=== PATIENT | male | born 1945 | race Caucasian/White ===

== ENCOUNTER 2016-09-16 08:31 | Inpatient (IN) | payer MEDICARE, OTHER ==
[2016-09-16] VITALS (7 sets, daily range): BP systolic 103–114; BP diastolic 60–80; PULSE 85–101; RESP 18–22; O2SAT 95–97
[~2016-09-16 08:31] MED LIST: ALBU2.5V4 INHALATION; ALBU8.5H2 INHALATION; ASPI-973 PO; Acetaminophen PO; Alum-Mag Hydrox-Simeth 30 mL Suspension PO PRN; CLOP75TA28 PO; FLUT1DIS5 INHALATION; FURO40TA4 PO; GLBR5T PO; INSU1KIT MC; INSU200I SQ; LISI-571 PO; LISI10TA PO; LORA1TAB PO; METO25TA6 PO; MONT10TA20 PO; MULT1CAP33 PO; PHEN15SP NS; PRED-508 PO; Polyethylene Glycol (PEG) 17 Gm Powder PO PRN; SPIR25TA PO; TIOT18CA3 INHALATION; TRIA0.1220 PO
[2016-09-16] MEDS ORDERED: LISI-571 PO (09:55)
[2016-09-16] MEDS ORDERED: DIGO125T73 PO (09:55)
[2016-09-16] MEDS ORDERED: CLOP75TA28 PO (09:55)
[2016-09-16] MEDS ORDERED: METO25TA99 PO (09:55)
[2016-09-16] MEDS ORDERED: PRE10 PO (09:55)
[2016-09-16] MEDS ORDERED: _Albuterol 2.5 mg/3 mL Neb NEB PRN (14:25)
[2016-09-16] MEDS: Albuterol 2.5 mg/3 mL Inhalation Solution NEB PRN ×2 (16:51→22:31)
--- NOTE | 2016-09-16 18:36 | NUR ---
Direct Admit for Tikosyn administration pt. came to 2002 for direct admit this am at 0750. Pt. tele sinus tach 90-low 100's. Denied cp, pressure, or palpitations. Tikosyn administered at 1100 this am; EKG 2 hr post; Francisco DENTON reviewed EKG's. Pt. up in room and hallway ambulating IND; steady on feet; denied dizziness or sob. Admit and med Rec completed by Toni delarosa RN.
[2016-09-16] MEDS: Fluticasone-Salmeterol 500-50 Inhaler INHALATION SCH (22:13)
[2016-09-16] MEDS: LORazepam 0.5 mg Tablet PO PRN (22:23)
[2016-09-17] VITALS (10 sets, daily range): BP systolic 94–113; BP diastolic 64–74; PULSE 69–87; RESP 16–24; O2SAT 95–98
--- NOTE | 2016-09-17 01:06 | HP ---
[address] [address] HISTORY AND PHYSICAL PATIENT: HARRIET BROCK : 1945 MR#: [id number] ADMIT: 09/16/2016 JOB ID: [id number] REASON FOR ADMISSION: To start new medical therapy with Tikosyn for treatment of malignant ventricular arrhythmias. CHIEF COMPLAINT: Episodic rapid pulse, syncope and cardiac arrest. 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 He earlier received a defibrillator for prevention of sudden cardiac and the device has over time recorded quite a few episodes of rapid tachycardia that are both narrow QRS, SVT and wide QRS VT. He also had one episode of ventricular fibrillation cardiac arrest about two months ago and the device successfully rescued him on the first shock. He was at home with his at the time and they were in the kitchen making breakfast. He suddenly lost consciousness and fell to the floor, but then revived. The patient also has a history of atrial flutter and has been cardioverted. PAST MEDICAL HISTORY: Aside from the cardiomyopathy, he has diabetes, dyslipidemia, sleep apnea, heart failure symptoms, recent bilateral lower leg cellulitis, COPD and hyperlipidemia. FAMILY HISTORY: The patient is currently adopted, although he knows of his mother and she in her 70s of heart failure. He has one daughter alive and well. SOCIAL HISTORY: He is retired, but is active with martial arts, and he is . He is a former smoker of cigarettes, and quit about two years ago. REVIEW OF SYSTEMS: This review is positive for dizziness, for cardiac symptoms of palpitations, and history of heart attack. Positive for heart failure symptoms of edema and exertional dyspnea and fatigue. He has history of hypertension and does experience dyspnea. Musculoskeletal systems review is positive for arthritis. The other points of the 14 point review of systems are negative. PHYSICAL EXAMINATION: Vital signs: BP 103/69, pulse 90 and regular, he is afebrile, and oximetry is 97% on room air. The patient is alert and well oriented to time, place and reason for being here. He is a middle-aged man in no distress. Head: Normocephalic. Eyes: Pupils and eye movements appear normal. Neck: Supple. No thyromegaly. Carotid pulses are weak, but there are no bruits. There is no JVD. Chest exam: Breath sounds are full in all royal. There are dry expiatory wheezes heard throughout. Cardiac exam: Regular rhythm. No gallops or murmurs heard. Abdomen: Soft and nontender and with bowel sounds. Lower leg edema is present bilaterally and he is healing from cellulitis which started a few weeks ago after walking in ocean water in [place]. IMPRESSIONS AND PLAN Mr. Brock has both rapid VT and SVT and a recent VF event from which he was rescued by his ICD. He also has a history of atrial flutter and COPD. With his ischemic cardiomyopathy, antiarrhythmic therapy with flecainide or propafenone is not acceptable. With his COPD, amiodarone and sotalol are not acceptable. This leaves Tikosyn (dofetilide) which requires initiation in the hospital to watch for prolonged QT intervals and possible aggravation of ventricular arrhythmias. After baseline ECG and lab work, he'll be given dofetilide 500 mcg capsules q. 12 hrs and have his 12 lead ECG recorded at 2-3 hrs after each dose to measure the QT. If this stays within 15% of baseline, then he'll continue.if it prolongs > 15%, then the dose will be reduced or discontinued Dr. Santos Bernard personally interviewed and physically examined Mr Brock as well. We discussed the patient's presentation and agreed on the plan of care together. JENIFER
--- NOTE | 2016-09-17 05:23 | NUR ---
Cardiac Pt here for Tikosyn administration. 220 does of Tikosyn given and EKG performed 2hrs after. Qtc 493 and within parameters. VSS and Tele SR 90's IVCD
[2016-09-17] MEDS ORDERED: predniSONE 10 mg Tablet PO SCH (08:00)
[2016-09-17] MEDS: Tiotropium 18mcg/Cap 5 Capsule Inhaler Kit INHALATION SCH (08:37)
[2016-09-17] MEDS: Fluticasone-Salmeterol 500-50 Inhaler INHALATION SCH ×2 (08:38→21:26)
[2016-09-17] MEDS: MeTOProlol XL 25 mg ER24 Tablet PO SCH (08:40)
[2016-09-17] MEDS: Albuterol 2.5 mg/3 mL Inhalation Solution NEB PRN ×2 (08:46→21:07)
--- NOTE | 2016-09-17 14:02 | PROG NOTE ---
[address] [address] PROGRESS NOTE PATIENT: HARRIET KOHLI : 1945 MR#: [id number] ADMIT: 09/16/2016 JOB ID: [id number] DATE: 09/17/2016 CHIEF COMPLAINT: "I did not sleep last night." SUBJECTIVE: The patient is a pleasant 71-year-old man who was admitted to the hospital yesterday to start antiarrhythmic therapy with Tikosyn for treatment of malignant ventricular arrhythmias and supraventricular tachycardia. He has received three doses of Tikosyn (dofetilide) at this time and is not aware of any side effects. He did not sleep well last night and that was mostly due to the noisy air mattress bed. He denies chest pain, lightheadedness, dizziness, shortness of breath, or GI upset today. OBJECTIVE: His serum chemistry from yesterday morning showed potassium 5.2, creatinine 1.12, magnesium 2.0 and BUN 34. His liver enzymes are slightly elevated with AST 69 and ALT 70. Baseline ECG showed sinus rhythm with a wide QRS of 127 msec and a QT of 374 with a QTc of 475. Two hours after his third dose of Tikosyn the QT was 429 and the QTc was 492 which is within the 15% increase allowable. His physical exam was reviewed, and there are no significant changes from yesterday. ASSESSMENT: The patient is tolerating dofetilide 500 mcg q.12 h. well. The QT interval on the ECG is not prolonging abnormally, and he is not having malignant arrhythmias. Telemetry monitoring does show occasional bouts of short nonsustained ventricular tachycardia with rates that are not concernedly fast. The arrhythmias are monomorphic and polymorphic, although he has different morphologies which present during any one run of nonsustained ventricular tachycardia. PLAN: For now, continue dofetilide at 500 mcg q.12 h. with ECGs recorded 2-3 hours after each dose. We will anticipate discharging him home tomorrow at about noon after the fifth dose of Tikosyn. Dr. Santos Bernard personally interviewed and examined the patient again today.
[2016-09-17] MEDS: LORazepam 0.5 mg Tablet PO PRN ×2 (14:22→21:23)
--- NOTE | 2016-09-17 19:32 | NUR ---
V-tach/Anxiety/Blood sugar Pt had 4 beats of V-tach this am, PA notified, Pt asymptomatic, no additional intervention at this time. Pt reported some mild anxiety this afternoon, given PRN lorazepam, Pt reported as effective. Pt's blood sugar 172 prior to glyburide dose this am, 227 prior to lunch, and 228 prior to dinner/evening glyburide dose, Pt asymptomatic with hyperglycemia, PA paged, instructed by PA to continue to monitor at this time, oncoming NOC RN made aware.
[2016-09-18 03:06] VITALS: BP 95/66; PULSE 78; RESP 22; O2SAT 97
--- NOTE | 2016-09-18 04:56 | NUR ---
Tikosyn/Vtach Pt EKG performed 2 hours after administration of Tikosyn showing QTc of 510 and still within normal limits for this pt. Pt had 6 Beats of Vtach x2 this shift and asymptomatic. VSS and Tele SR 80's.
[2016-09-18] MEDS ORDERED: predniSONE 10 mg Tablet PO SCH (08:00)
[2016-09-18 08:49] VITALS: BP 98/68; PULSE 89; RESP 20; O2SAT 98
[2016-09-18] MEDS: MeTOProlol XL 25 mg ER24 Tablet PO SCH (09:23)
[2016-09-18 09:38] VITALS: PULSE 83; RESP 16; O2SAT 97
[2016-09-18] MEDS: Albuterol 2.5 mg/3 mL Inhalation Solution NEB PRN (09:38)
[2016-09-18] MEDS: Fluticasone-Salmeterol 500-50 Inhaler INHALATION SCH (10:17)
[2016-09-18] MEDS: Tiotropium 18mcg/Cap 5 Capsule Inhaler Kit INHALATION SCH (10:18)
[2016-09-18 11:12] VITALS: PULSE 80
[2016-09-18] MEDS: LORazepam 0.5 mg Tablet PO PRN (13:05)
--- NOTE | 2016-09-18 13:18 | PCM.DIMED ---
Discharge Instructions Date of Service Sep 18, 2016 Dates of Hospitalization Sep 16, 2016 at 08:31 Discharge Diagnosis Discharge Diagnosis Recent VF - defibrillated by ICD Ventricular Tachycardia SVT Cardiomyopathy Atrial Flutter Diet Low fat, Low Sodium, Heart Healthy Activity No restrictions Call your provider Other (Fainting or near fainting) Patient Instructions Provider: Santos Bernard MD Follow-up in: 1 week (Sep 23, 2016 in [place]. ) Mid-level Provider (F9): Francisco Harris PA-C Follow-up with Mid-level in: 4 weeks (Device Clinic in [place] on 10-11-16 at 1:30) Francisco Harris PA-C Sep 18, 2016 13:18
[2016-09-18] MEDS ORDERED: [UNRECOGNIZED DRUG - CODE] PO (13:29)
--- NOTE | 2016-09-18 13:53 | NUR ---
Social Work Note: Initial Assessment/Discharge Data& Assessment: EMR reviewed. Per pt is medically improved and ready for discharge. Darrick Brock is a 71 year old male admitted on 08/29/2016 for initiation Tikasyn therapy. Per pt is medically improved and ready to discharge home with via POV. SW met with pt and pt at bedside to confirm discharge plan and assess for any unmet needs. Pt has Medicare and [facility] [employer] [facility] Plan Supplement. Pt sees Westley Huerta MD for primary care. Pt lives in [place] with his and is independent at baseline. Pt drives and does not use any DME. Pt does not have HH or SNF hx. Pt does not have LTC insurance or VA benefits. Pt has DPOA paperwork completed, SW requested a copy when possible for his chart. Pt transporting pt home today. Pt and pt deny any other needs. No other discharge needs identified. Plan: Per pt is medically improved and ready to discharge home with via POV. Pt transporting pt home today. Pt and pt deny any other needs. No other discharge needs identified. All updated and agreeable to plan. MARTHA Gorman Addendum: 09/18/16 at 1357 by SHAWN HERRING Amended: Links added.
--- NOTE | 2016-09-18 14:11 | DIS ---
[address] [address] DISCHARGE SUMMARY PATIENT: HARRIET KOHLI : 1945 MR#: [id number] ADMIT: 09/16/2016 JOB ID: [id number] DIS: 09/18/2016 REASON FOR ADMISSION: New medical therapy with Tikosyn for ventricular and supraventricular arrhythmias. CHIEF COMPLAINT: Syncope and near syncope from rapid heart beats. BRIEF HISTORY: The patient is a pleasant 71-year-old man who likely has tachycardia induced cardiomyopathy due to supraventricular arrhythmias and atrial flutter. He also has developed both sustained and nonsustained ventricular tachycardia and even had one episode of ventricular fibrillation over the past two months. He was resuscitated from this by his implanted defibrillator. He required antiarrhythmic therapy because of his problems and due to his conditions, dofetilide (Tikosyn) was the drug of choice. COURSE IN HOSPITAL: The patient was admitted to the [facility] and after baseline lab work and ECGs were obtained, he was started on Tikosyn 500 mcg q.12 hours. He had EKGs recorded two hours after each dose and the QT interval prolonged but remained within the 15% increase from baseline. Telemetry recording showed several brief episodes of nonsustained ventricular tachycardia that were not rapid and were not polymorphic. He had no side effects from the medication and felt well for discharge home. DISPOSITION: The patient was discharged home in good condition with a follow up appointment at the [facility] Cardiology office in [place] next week with Dr. Bernard and then on October 18 at the device clinic in [place], with Francisco Harris PA-C. He was advised to take Tikosyn q.12 hours and not vary more than 1 hour in the dosing schedule and also to not try to make up any doses but just continue with the next scheduled dose if he missed one by more than one hour. He will continue a heart healthy and low sodium diet and he has no activity restrictions. DISCHARGE MEDICATIONS: 1. Dofetilide 500 mcg capsules q.12 hours. 2. Albuterol HFA inhaler, two puffs q.4 hours p.r.n. shortness of breath. 3. Albuterol nebulizer 2.5 mg inhalations q.4 hours p.r.n. 4. Aspirin 81 mg daily. 5. Clopidogrel 75 mg daily. 6. Advair 500-50 Diskus 1 puff b.i.d. 7. Furosemide 40 mg daily. 8. Glyburide 5 mg b.i.d. or 10 mg b.i.d. when on prednisone. 9. Lisinopril 10 mg in the a.m. 10. Lisinopril 5 mg q.h.s. 11. Lorazepam 0.5-1.0 mg p.o. t.i.d. p.r.n. anxiety. 12. Metoprolol succinate 25 mg daily. 13. Singulair 10 mg p.r.n. 14. Multivitamin daily. 15. Phenylephrine 1 spray nasally 4x daily p.r.n. congested. 16. Prednisone 10 mg daily. 17. Spironolactone 12.5 mg daily. 18. Spiriva 18 mcg inhalation daily. 19. Triazolam 0.125 mg p.r.n. insomnia. 20. Tylenol 650 mg every 6 hours p.r.n. pain. FINAL DIAGNOSES: 1. Ventricular tachycardia. 2. Ventricular fibrillation. 3. Supraventricular tachycardia. 4. Atrial flutter. 5. Cardiomyopathy.
--- NOTE | 2016-09-18 14:53 | NUR ---
Discharge Pt discharged to home with family at ~1416 after receiving am dose of Tikosyn, subsequent EKG 2 hours after the dose, and EKG was reviewed by PA. Pt's new prescription electronically transmitted to Pt's pharmacy by PA. Pt instructed to f/u with cardiology as listed in discharge instructions. Pt's IV access D/C'd and intact X1. Pt given discharge educational materials on new prescription. Pt verbalized understanding of all discharge instructions. All belongings accompanied Pt at time of discharge.
== END 2016-09-18 14:25 | disposition home or self-care (01) | DRG 309 ==
LOC: PCC 08:31
PROVIDERS: ADMIT Internal Medicine Cardiovascular Disease; ATTEND Internal Medicine Cardiovascular Disease
DX: I47.2 Ventricular tachycardia (principal); I50.22 Chronic systolic (congestive) heart failure; I25.5 Ischemic cardiomyopathy; I49.01 Ventricular fibrillation; I48.92 Unspecified atrial flutter; Z87.891 Personal history of nicotine dependence; Z95.810 Presence of automatic (implantable) cardiac defibrillator

== ENCOUNTER 2016-10-30 17:37 | Inpatient (IN) | payer MEDICARE, OTHER ==
[~2016-10-30] VITALS: Ht 177.8 cm; Wt 84.8 kg
[~2016-10-30 17:37] MED LIST changes: -Alum-Mag Hydrox-Simeth 30 mL Suspension PO PRN; -INSU1KIT MC; -INSU200I SQ; -METO25TA6 PO; +METO25TA99 PO; +PRE10 PO; -PRED-508 PO; -Polyethylene Glycol (PEG) 17 Gm Powder PO PRN; +[UNRECOGNIZED DRUG - CODE] PO
[2016-10-30] MEDS ORDERED: Alum-Mag Hydrox-Simeth 30 mL Suspension PO PRN (18:05)
[2016-10-30] MEDS ORDERED: Ondansetron 2 mg/mL 2 mL Inj IVPUSH PRN (18:05)
[2016-10-30 18:14] VITALS: BP 114/74; PULSE 78; RESP 20; O2SAT 96
[2016-10-30 18:20] VITALS: PULSE 77
--- NOTE | 2016-10-30 18:36 | PCM.HPMED ---
Subjective Date of Service Oct 30, 2016 Primary Provider: Admitting Physician: Frank Power MD Primary Care Physician: Westley Huerta MD Attending Physician: Frank Power MD Chief Complaint: Lower extremity swelling History of Present Illness: Patient is a 70-year-old gentleman with CAD s/p PCI (GERARD to distal LAD), CHF s/ p AICD, dyslipidemia, COPD, solitary congenital kidney and pulmonary hypertension presenting as a transfer from [facility]. Patient accompanied by his at bedside. Patient presented to [facility] on 10/28/2016 with worsening lower extremity edema. He reports onset of edema since July but worsened over the past week with the development of blisters. At [facility] , the patient underwent an echocardiogram and was found to have an estimated ejection fraction of 10-15%,which is worse than his prior echocardiogram (11/2015 ) with EF 15-20%. There was also elevations of troponin-I (0.069, 3.760 and 1.680) and patient was subsequently started on a heparin drip. Cardiology was reportedly consulted and it was recommended the patient be transferred to [facility] for further evaluation with anticipated cardiac catheterization. At time of visit, the patient endorses shortness of breath, which is chronic, and some neck pain from a prior injury. He also reports having a left inguinal hernia that he feels has worsened with the recent swelling. Patient feels his urine output has decreased despite being on Lasix. He reports he last urinated this afternoon. Patient otherwise denies chest pain, lightheadedness, dizziness, vision changes, abdominal pain, nausea, emesis. Notable labs from [facility] 10/30/2016: WBC 14.6, Hgb 16.5, Hct 50.2, Plt 163, Na 128, K 5.2, Cl 94, CO2 23, BUN 51, Creatinine 1.20. Other notable labs: BNP 1120. Review of Systems: A comprehensive review of systems was conducted with the patient and found to be negative except as above in the History of Present Illness. Allergies Coded Allergies: Penicillins (Verified Allergy, Unknown, thrush, 12/22/15) Sulfa (Sulfonamide Antibiotics) (Verified Allergy, Unknown, 12/22/15) metformin (Verified Allergy, Unknown, dyspnea, 12/22/15) levofloxacin (Verified Adverse Reaction, Severe, tendonitis, 10/30/16) oxycodone (Verified Adverse Reaction, Intermediate, itching, 10/30/16) Tmvcddd-Hec-Kom Reductase Inhibitor (Verified Adverse Reaction, Mild, myalgias, 10/30/16) *ON LOW DOSE LIPITOR CURRENTLY Home Medications Plavix 75mg daily Lisinopril 5mg daily Triazolam PMH 1. COPD 2. Anxiety 3. HFrEF (echo 10/2016 estimated EF 10-15%) 4. Dilated cardiomyopathy 5. Pulmonary HTN 6. Type 2 diabetes mellitus 7. Dyslipidemia 8. Single congenital kidney 9. Left lung nodule 10. Conductive hearing loss 11. Erectile dysfunction 12. Allergic rhinitis 13. Hypertension 14. Sleep apnea Surgical History Sebaceous cyst excision AICD placement Cataract surgery Cardiac catheterization with stent placement (GERARD to LAD) 11/2015 Family History Mother in her 70s of heart disease and DM Social History Hx Alcohol Use: Yes (mostly holidays) Hx Substance Use: No Smoking Status: Current Some Day Smoker Living Arrangement: with Family Exam Exam General: Chronically ill-appearing, No acute distress, well-developed, well- nourished, appropriately interactive HEENT: Normocephalic, atraumatic. External ears without defect. Pupils equal, round, and reactive to light and accommodation. Anicteric sclerae, moist conjunctivae, and no lid lag. Oropharynx free of erythema and cobble stoning with dry mucosa Neck: Supple Cardiovascular: Distant heart sounds. Regular rate and rhythm with no murmurs, rubs, or gallops appreciated Pulmonary: Wheezing bilaterally. Decreased sound at bases. Normal respiratory effort with no use of accessory muscles. Abdomen: Bowel tones present. Soft, nontender, nondistended. Extremities: Bilateral lower extremity edema with pitting up to sacrum. Scrotal edema. Skin: Lower extremity with chronic venostasis changes, erythema. Clean dry dressing to right lower extremity and toes, and clean dry dressing over left forefoot. Neurological: Cranial nerves grossly intact. Psychiatric: Normal mood and affect. Alert and oriented to person, place, and time. Lab and Diagnostics Cardiac Echo Impressions Echocardiogram 10/29/2016 The left ventricle is severely dilated. The EF is estimated to be 10-15%. Compared to prior exam, left ventricular function is slightly decreased. The right ventricle is normal size. Right ventricular systolic is moderately reduced. There is a pacemaker lead in the right ventricle. There is moderate mitral regurgitation. Compared to prior echo study, there has been an increase in the severity of mitral regurgitation. There is severe tricuspid regurgitation. Compared to prior echo exam, there has been an increase in TR severity. The RVSP is estimated at 43mmHg assuming a right atrial pressure of 15mm Hg. Compared to prior echo exam, there has been an increase in the severity of pulmonary hypertension. Dr. Santos Bernard 10/29/2016 05:31 Additional Diagnostics: Date: 10/29/2016 PROCEDURE: PVE Unilateral Right IMPRESSION: No deep venous thrombosis in the right lower extremity. Hung Aden MD on 10/29/2016 ----- Date 10/27/2016 PROCEDURE: ARTERIAL LOW.EXTREM.BILATERAL IMPRESSION: Scattered bilateral lower extremity atheromatous plaque as above, without definite evidence of focal stenosis. Left dorsalis pedis artery is not evaluated secondary to soft tissue changes. Shaan Nogueira MD on 10/28/2016 Assessment & Plan Patient is a 70-year-old male with CAD s/p PCI (GERARD to distal LAD), CHF s/p AICD , dyslipidemia, COPD, solitary congenital kidney and pulmonary hypertension presenting as a transfer from [facility] and admitted for worsening systolic heart failure and lower extremity edema. Hospital day #1. 1. HFrEF with dilated cardiomyopathy. Present on admission. Active -Decrease ejection fraction on recent echo (EF 15-20% to 10-15%) -Likely secondary to ischemia -Continue dofetilide 500mcg daily -Gentle diuresis with Lasix. He was receiving Lasix 40mg IV twice daily at [facility]. Will assess fluid status in AM. -Cardiology will see patient in the morning. Recommendations per cardiology appreciated -NPO in anticipation of possible catheterization tomorrow 2. Elevated troponin. Present on admission. Active -Continue heparin drip -Cardiology will see patient in the morning. Recommendations per cardiology appreciated 3. Bilateral lower extremity edema. Present on admission. Active -Likely secondary to worsening heart failure -Ruptured blisters and ulcers present - Wound Care consult 4. Acute kidney injury. Present on admission. Active -Note that patient has solitary congenital kidney -Elevated creatinine. Prior hospitalization ( less than 1 year ago) show normal creatinine -Will hold lisinopril and spironolactone 5. Left inguinal hernia, chronic. Present on admission. Active -Patient reports increased pain with onset of swelling -Consider ultrasound if pain persists 6. COPD, chronic. Present on admission. Currently stable -DuoNeb QIDWA -Albuterol PRN 7. Type 2 diabetes mellitus, chronic. Present on admission. Stable -Bedside blood glucose checks -Hold home glyburide -Patient is currently NPO -Low dose correctional lispro -HbA1c pending 8. Dyslipidemia, chronic. Present on admission. Stable -Continue home dose atorvastatin 10mg in the evening -Lipid panel pending 9. Anxiety, chronic. Present on admission. Presumed stable -Patient usually takes triazolam 0.125mg, which is not on formulary. Will substitute temazepam 7.5mg before bedtime. Patient Status: Patient is admitted under inpatient status with expected length of stay greater than 2 midnights due to severity of presenting symptoms, risk of adverse event, and complexity of treatment plan. Pain Evaluation: Adequate Pain Control VTE Prophylaxis: Other (Heparin gtt) Resuscitation Status: CPR: Attempt Resuscitation Attending Statement Please note the patient is also suffering from hyponatremia secondary to volume overload, hyperkalemia likely secondary to acute renal injury in the setting of acute on chronic systolic congestive heart failure, and hepatic congestion, also likely secondary to acute on chronic systolic congestive heart failure. The patient was seen and examined together with Dr. Eugene on 10/30/2016 and I agree with the history, exam and plan as outlined in the note above. . copies to: Westley Huerta MD, Bob A DO Oct 30, 2016 18:36 Frank Power MD Nov 02, 2016 09:14
[2016-10-30] MEDS ORDERED: Heparin 25K Unit/500mL 0.45 NS 25,000 UNIT in IV Premix 1 EACH IV SCH (18:45)
[2016-10-30] MEDS ORDERED: Heparin 5,000 Unit/mL Inj IVPUSH PRN (18:45)
--- NOTE | 2016-10-30 19:48 | NUR ---
Admit Pt arrived around 1730 with daughter at the bedside. Telemetry leads placed. IV present R forearm. Pt A&O. Whiteboard updated. Report given to night RN. Heparin drip maintained at 20mls/hour per MD.
[2016-10-30] MEDS ORDERED: LISI-571 PO (20:03)
[2016-10-30] MEDS ORDERED: ACET325T51 PO (20:06)
[2016-10-30] MEDS ORDERED: SPIR25TA3 PO (20:06)
[2016-10-30] MEDS ORDERED: ATRV10T PO (20:07)
[2016-10-30] MEDS ORDERED: Albuterol 1.25 mg/3 mL Inhalation Solution NEB PRN (20:10)
[2016-10-30] MEDS ORDERED: Glucose 40% Oral Gel 15 Gm Tube PO PRN (20:10)
[2016-10-30 21:00] VITALS: BP 123/77; PULSE 80; RESP 20; O2SAT 98
[2016-10-30] MEDS: Albuterol-Ipratropium 3 mL Inhalation Solution NEB SCH (21:24)
[2016-10-30 21:26] VITALS: PULSE 87; RESP 20; O2SAT 94
[2016-10-30] MEDS: HYDROcodone-APAP 5-325 mg Tablet PO PRN (21:34)
[2016-10-30] MEDS: Insulin LISPRO 300 Unit/3 mL Inj SUBQ SCH (22:00)
[2016-10-31] VITALS (20 sets, daily range): BP systolic 100–128; BP diastolic 59–87; PULSE 60–88; RESP 14–24; O2SAT 94–98
[2016-10-31] MEDS ORDERED: Heparin 5,000 Unit/mL Inj SUBQ SCH (00:30)
--- NOTE | 2016-10-31 01:02 | NUR ---
Pain Pt has discomfort to his right shoulder. He states the pressure is relieved if "I sit up with my feet on the floor" His feet are very edematous I encouraged him as much as possible to keep his feet up on the pillows in bed. Care ongoing
--- NOTE | 2016-10-31 01:03 | NUR ---
Wound care Pt has two large open blister areas to bilat feet. Rewrapped in kerlix and nonadhesive gauze pad Draining serous fluid Pt has wound care consult in the AM Addendum: 10/31/16 at 0140 by LOUISE LUBIN RN Open blister to right [place]/left foot
--- NOTE | 2016-10-31 02:54 | NUR ---
Pt has urinary urgency Bladder scanned for 134cc. He denies lower abd pain. Will cont to monitor
--- NOTE | 2016-10-31 02:54 | NUR ---
Restless Pt up OOB frequently to attempt to void. Sitter obtained due to HIGH fall risk Care ongoing
[2016-10-31 03:06] LABS: BASOPHILS % (AUTO) 0.2 % (0-3); EOSINOPHILS % (AUTO) 0.1 % (0-5); MONOCYTES % (AUTO) 15.9 % (4-12); Mean Corpuscular Hemoglobin 28.8 pg (27.0-35.0); NEUTROPHILS % (AUTO) 73.5 % (40-74); Platelet Count 185 bil/L (150-400)
--- NOTE | 2016-10-31 03:24 | NUR ---
Pain Pt c/o right shoulder pain rated at an 7 NPO for procedure in AM MD notified. Morphine order received. Will monitor for effectiveness
[2016-10-31 03:32] LABS: Magnesium 2.1 mg/dL (1.6-2.6)
--- NOTE | 2016-10-31 04:19 | NUR ---
Elevated potassium Potassium 6.5. Requested stat redraw since last potassium 10/29 island was 4.8 aware Addendum: 10/31/16 at 0514 by LOUISE LUBIN RN aware of new value of 5.9. Sent by [employer]
[2016-10-31] MEDS ORDERED: Albuterol 2.5 mg/3 mL Inhalation Solution NEB ONE (05:20)
--- NOTE | 2016-10-31 05:39 | NUR ---
Pt up OOB to attempt to void approx 8x tonight. He required a sitter due to the frequency of his desire to get OOB and void (not remembering to ask for help) Bladder scan shows 220cc. His abd is soft touch No void since approx 2100 Care ongoing
[2016-10-31] MEDS ORDERED: Albuterol 0.5% (5mg/mL) 20 mL Inhalation Solution NEB ONE (05:45)
[2016-10-31] MEDS: Albuterol-Ipratropium 3 mL Inhalation Solution NEB SCH ×4 (06:00→21:31)
[2016-10-31] MEDS ORDERED: Insulin Human REGular 300 Unit/3 mL Inj IV ONE (06:45)
--- NOTE | 2016-10-31 07:28 | NUR ---
High Potassium Potassium level called to resident and then Dr Farnsworth See orders. Oncoming RN aware to given IV regular insulin as well as D50 and get the K level one hour following.
--- NOTE | 2016-10-31 07:29 | NUR ---
GI Pt able to void 125cc urin on his own. Feels some relief. less agitated
[2016-10-31] MEDS: Insulin LISPRO 300 Unit/3 mL Inj SUBQ SCH ×4 (08:00→22:00)
[2016-10-31] MEDS ORDERED: Furosemide 10 mg/mL 4 mL Inj IVPUSH SCH (08:30)
[2016-10-31] MEDS: HYDROcodone-APAP 5-325 mg Tablet PO PRN ×2 (10:04→21:15)
[2016-10-31 10:52] LABS: TROPONIN T 0.234 ug/L (0.0-0.011)
--- NOTE | 2016-10-31 13:09 | PCM.PNMED ---
Subjective Date of Service Oct 31, 2016 Subjective No overnight events. The patient reports a dry mouth but otherwise is doing well without complaints. Patient denies chest pain, lightheadedness, dizziness, abdominal pain, nausea, emesis. Exam Vital Signs Vital Sign - Last Date Time Temp Pulse Resp B/P Pulse Ox O2 Delivery O2 Flow Rate FiO2 10/31/16 10:10 88 22 97 Nasal Cannula 2.00 10/31/16 08:18 36.5 122/84 Intake and Output 10/30/16 10/30/16 10/31/16 Cumulative From/Thru 15:00 23:00 07:00 10/30/16 18:00 - 10/31/16 04:58 Intake Total 200 ml 200 ml Output Total 200 ml 200 ml Balance 0 ml 0 ml Intake Oral 200 ml 200 ml Output Urine Total 200 ml 200 ml # Bowel Movements 0 0 Exam General: Chronically ill-appearing, No acute distress, well-developed, well- nourished, appropriately interactive HEENT: Normocephalic, atraumatic. External ears without defect. Anicteric sclerae, moist conjunctivae, and no lid lag. Dry oral mucosa. Neck: Supple Cardiovascular: Distant heart sounds. Regular rate and rhythm with no murmurs, rubs, or gallops appreciated Pulmonary: Wheezing bilaterally. Decreased sound at bases. Normal respiratory effort with no use of accessory muscles. Abdomen: Bowel tones present. Soft, nontender, nondistended. Extremities: Bilateral lower extremity edema with pitting up to sacrum. Skin: Lower extremity with chronic venostasis changes, erythema. Clean dry dressing to right lower extremity and toes, and clean dry dressing over left forefoot. Neurological: Cranial nerves grossly intact. Psychiatric: Normal mood and affect. Alert and oriented to person, place, and time. IVs and Medications Medications Reviewed: Medications were reviewed in detail Lab and Diagnostics Result Diagram: 10/31/16 0830 10/31/16 0925 Cardiac Echo Impressions Echocardiogram 10/29/2016 The left ventricle is severely dilated. The EF is estimated to be 10-15%. Compared to prior exam, left ventricular function is slightly decreased. The right ventricle is normal size. Right ventricular systolic is moderately reduced. There is a pacemaker lead in the right ventricle. There is moderate mitral regurgitation. Compared to prior echo study, there has been an increase in the severity of mitral regurgitation. There is severe tricuspid regurgitation. Compared to prior echo exam, there has been an increase in TR severity. The RVSP is estimated at 43mmHg assuming a right atrial pressure of 15mm Hg. Compared to prior echo exam, there has been an increase in the severity of pulmonary hypertension. Dr. Santos Bernard 10/29/2016 05:31 Additional Diagnostics Date: 10/29/2016 PROCEDURE: PVE Unilateral Right IMPRESSION: No deep venous thrombosis in the right lower extremity. Hung Aden MD on 10/29/2016 ----- Date 10/27/2016 PROCEDURE: ARTERIAL LOW.EXTREM.BILATERAL IMPRESSION: Scattered bilateral lower extremity atheromatous plaque as above, without definite evidence of focal stenosis. Left dorsalis pedis artery is not evaluated secondary to soft tissue changes. Shaan Nogueira MD on 10/28/2016 Assessment & Plan Patient is a 70-year-old male with CAD s/p PCI (GERARD to distal LAD), CHF s/p AICD , dyslipidemia, COPD, solitary congenital kidney and pulmonary hypertension presenting as a transfer from [facility] and admitted for worsening systolic heart failure and lower extremity edema. Hospital day #2. 1. HFrEF with dilated cardiomyopathy. Present on admission. Active -Decrease ejection fraction on recent echo (EF 15-20% to 10-15%) -Likely secondary to ischemia -Continue dofetilide 500mcg daily -Holding Lasix given rising creatinine -Cardiology following. Recommendations per cardiology appreciated 2. Elevated troponin. Present on admission. Active -Continue heparin drip -Cardiology following. Recommendations per cardiology appreciated 3. Bilateral lower extremity edema. Present on admission. Active -Likely secondary to worsening heart failure -Ruptured blisters and ulcers present - Wound Care consult 4. Acute kidney injury. Present on admission. Active -Note that patient has solitary congenital kidney -Worsening kidney function. Creatinine 1.5 from 1.2. -Will hold lisinopril and spironolactone 5. Left inguinal hernia, chronic. Present on admission. Active -Patient reports increased pain with onset of swelling -Consider ultrasound if pain persists 6. COPD, chronic. Present on admission. Currently stable -DuoNeb QIDWA -Albuterol PRN 7. Type 2 diabetes mellitus, chronic. Present on admission. Stable -Bedside blood glucose checks -Hold home glyburide -Low dose correctional lispro -HbA1c pending 8. Dyslipidemia, chronic. Present on admission. Stable -Continue home dose atorvastatin 10mg in the evening -Lipid panel shows cholesterol is well controlled 9. Anxiety, chronic. Present on admission. Presumed stable -Lorazepam 1mg TID and before bed PRN Disposition: Anticipate discharge home without needs pending cardiology recommendations and whether the patient undergoes cardiac catheterization Pain Evaluation: Adequate Pain Control VTE Prophylaxis: Other (Heparin gtt) VTE Mechanical Devices: Intermittant Pneumatic CD Resuscitation Status: CPR: Attempt Resuscitation Attending Statement Please note the patient is also suffering from hyponatremia secondary to volume overload, hyperkalemia likely secondary to acute renal injury in the setting of acute on chronic systolic congestive heart failure, and hepatic congestion, also likely secondary to acute on chronic systolic congestive heart failure. The patient was seen and examined together with Dr. Eugene on 10/31/2016 and I agree with the history, exam and plan as outlined in the note above. . Tevin Eugene DO Oct 31, 2016 10:32 Frank Power MD Nov 02, 2016 09:16
[2016-10-31] MEDS ORDERED: Heparin 1,000 Units/500 mL NS Premix IV ONE (14:09)
--- NOTE | 2016-10-31 14:21 | PCM.CHPCAR ---
Consult Subjective Date of service Oct 31, 2016 Date of admit Oct 30, 2016 at 17:39 Provider Requesting Consult Primary Care Physician Primary Care Physician: Westley Huerta MD Chief Complaint heart failure, troponin elevation History of Present Illness 71 yo M h/o HFrEF, CAD s/p GERARD to distal LAD 11/2015 transferred from [facility] with heart failure and troponin elevation. Patient states that his baseline was a year ago when he could walk a few miles with mild dyspnea due to COPD. In November 2015, patient was diagnosed with systolic heart failure in the setting of myocardial infarction. He underwent urgent GERARD placement to his distal LAD. Unfortunately, his LVEF did not improve significantly despite revascularization and medical management. He got an AICD placed subsequently. In July 2016, he had VF arrest and his AICD properly shocked him out of it. Since his myocardial infarction in 2015, patient has been unable to walk for several miles as before. In July 2016, patient started noticing lower extremity edema. He went to urgent care and was placed on diuretics. He then went to [place] and was able to walk reasonably well over there. In August the grocery edema got even better with therapies. However, the lower extremity edema got worse last month. His dyspnea on exertion has also progressed significantly to the point that he is unable to do his ADLs now. Patient denies chest pain, palpitations, lightheadedness, or syncope. He also denies fevers, chills, nausea, or vomiting. Review of Systems Review of Systems per HPI and otherwise unremarkable PMH Past Medical History # HFrEF (systolic heart failure): probably from non-ischemic cardiomyopathy but it could also be from diffuse CAD. 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 Bedside Blood Glucose: 105 Scheduled Aspirin (Aspirin) 81 Mg Tablet 81 MG PO QAM (Reported) Atorvastatin (Lipitor) 10 Mg Tab 10 MG PO HS (Reported) Clopidogrel (Clopidogrel) 75 Mg Tablet 75 MG PO QAM (Reported) Dofetilide (Tikosyn) 500 Mcg Capsule 500 MCG PO Q12 Fluticasone/Salmeterol (Advair 500-50 Diskus) 1 Each Disk.w.dev 1 PUFF INHALATION BID (Reported) Furosemide (Furosemide) 40 Mg Tablet 40 MG PO DAILY Glyburide (Glyburide) 5 Mg Tab 5 MG PO QAM (Reported) Lisinopril (Lisinopril) 5 Mg Tablet 5 MG PO QAM (Reported) TAKE LISINOPRIL 5 MG IN AM, 2.5 MG AT HS Lisinopril (Lisinopril) 5 Mg Tablet 2.5 MG PO HS (Reported) TAKE LISINOPRIL 5 MG IN AM, 2.5 MG AT HS Metoprolol Succinate ER (Metoprolol Succinate ER) 25 Mg Tab.er.24h 25 MG PO QAM (Reported) Multivitamin (Multivitamins) 1 Each Capsule 1 EACH PO QAM (Reported) Spironolactone (Spironolactone) 25 Mg Tablet 12.5 MG PO QAM (Reported) Tiotropium [place] (Spiriva) 18 Mcg Cap.w.dev 18 MCG INHALATION QAM (Reported) Scheduled PRN Acetaminophen (Acetaminophen) 325 Mg Tablet 650 MG PO Q4H PRN PRN For Fever ( Reported) Albuterol HFA (Proair HFA) 8.5 Gm Hfa.aer.ad 2 PUFFS INHALATION Q4H PRN PRN For Shortness of Breath (Reported) Albuterol Neb Soln (Albuterol Neb Soln) 2.5 Mg/3 Ml Vial.neb 2.5 MG INHALATION Q4H PRN PRN For Shortness of Breath (Reported) Lorazepam (Lorazepam) 1 Mg Tablet 0.5-1 MG PO TID PRN PRN For Anxiety or Agitation (Reported) Triazolam (Triazolam) 0.125 Mg Tablet 0.125 MG PO HS PRN PRN Insomnia (Reported ) Discontinued Medications ([Acetaminophen]) 325 MG TABLET 650 MG PO Q6H PRN PRN For Mild Pain Lisinopril (Lisinopril) 10 Mg Tablet 10 MG PO DAILY (Reported) Montelukast (Singulair) 10 Mg Tablet 10 MG PO DAILY PRN PRN For Congestion ( Reported) Phenylephrine HCl (Raz-Synephrine) 15 Ml [place] 1 SPRAY NS QID PRN PRN For Congestion (Reported) Prednisone (PredniSONE) 10 Mg Tablet 10 MG PO DAILY (Reported) Spironolactone (Aldactone) 25 Mg Tablet 12.5 MG PO DAILY Current Inpatient Medications Current Medications Heparin Sodium (Porcine) 5,000 unit Q8 SUBQ; Start 10/31/16 at 00:30; Stop at 00:30; Status DC Al Hydrox/Mg Hydrox/Simethicone 30 ml Q6H PRN PO; Start 10/30/16 at 18:05 Ondansetron HCl 4 to 8 mg Q4H PRN IVPUSH Last administered on 10/30/16 21:34; Admin Dose 4 MG; Start 10/30/16 at 18:05 Senna 17.2 mg BID PRN PO; Start 10/30/16 at 18:05 Polyethylene Glycol 17 gm DAILY PRN PO; Start 10/30/16 at 18:05 Acetaminophen 650 mg Q4H PRN PO; Start 10/30/16 at 18:05 Acetaminophen/ Hydrocodone Bitart 1-2 TABS Q4H PRN PO Last administered on 10:04; Admin Dose 2 TABLET; Start 10/30/16 at 18:05 Heparin Sodium (Porcine) Per Protocol for a... PRN PRN IVPUSH Last administered on 10/30/16 21:30; Admin Dose 3,000 UNIT; Start 10/30/16 at 18:45 Dofetilide 500 mcg DAILY PO Last administered on 10/31/16 08:24; Admin Dose 500 MCG; Start 10/31/16 at 08:30 Atorvastatin Calcium 10 mg HS PO; Start 10/30/16 at 21:00 Furosemide 40 mg DAILY IVPUSH; Start 10/31/16 at 08:30; Stop 10/31/16 at 08:30; Status DC Temazepam 7.5 mg HS PRN PO; Start 10/30/16 at 19:25 Insulin Human Lispro Nutritional Dose to be given pr... [facility] SUBQ; Start at 22:00 Albuterol/ Ipratropium 3 ml QIDWA NEB Last administered on 10/31/16 10:08; Admin Dose 3 ML; Start 10/30/16 at 21:00 Albuterol 1.25 mg Q4H PRN NEB Last administered on 10/31/16 01:02; Admin Dose 1.25 MG; Start 10/30/16 at 20:10 Allergies: Coded Allergies: Penicillins (Verified Allergy, Unknown, thrush, 12/22/15) Sulfa (Sulfonamide Antibiotics) (Verified Allergy, Unknown, 12/22/15) metformin (Verified Allergy, Unknown, dyspnea, 12/22/15) levofloxacin (Verified Adverse Reaction, Severe, tendonitis, 10/30/16) oxycodone (Verified Adverse Reaction, Intermediate, itching, 10/30/16) Yneldwn-Xxa-Ubo Reductase Inhibitor (Verified Adverse Reaction, Mild, myalgias, 10/30/16) *ON LOW DOSE LIPITOR CURRENTLY Family History Family History Patient was adopted. His kids are healthy. Social History Hx Alcohol Use: Yes (mostly holidays)Hx Substance Use: No Smoking Status: Former Smoker Living Arrangement: with Family Exam Vital Signs Vital Sign - Last Date Time Temp Pulse Resp B/P Pulse Ox O2 Delivery O2 Flow Rate FiO2 10/31/16 11:17 36.4 74 18 117/77 97 Nasal Cannula 2.00 Intake and Output 10/30/16 10/30/16 10/31/16 Cumulative From/Thru 15:00 23:00 07:00 10/30/16 18:00 - 10/31/16 04:58 Intake Total 200 ml 200 ml Output Total 200 ml 200 ml Balance 0 ml 0 ml Intake Oral 200 ml 200 ml Output Urine Total 200 ml 200 ml # Bowel Movements 0 0 General appearance: in minimal respiratory distress, frail, pleasant, cooperative HEET: Normocephalic atraumatic, no scleral icterus, tongue midline, mucous membranes moist Neck: supple Cardiovascular: RRR, distant S1 and S2, no murmurs/ rubs/gallops, PMI laterally displaced, JVP 12cm H20, 2 to 3+ peripheral edema b/l Respiratory: Fair aeration, able to speak in 4-5 words at a time, coarse b/l Abdomen: Soft, nontender, obese, + bowel sounds Neuro: Alert, no facial droop, tongue midline, no gross motor deficits Psych: anxious Skin: ecchymosis on both forearms Lab and Diagnostics Labs Troponin 0.234 Result Diagram: 10/31/16 0830 10/31/16 0925 X-Rays, CTs and MRIs Echo 10/29/2016: The left ventricle is severely dilated. The ejection fraction is estimated to be 10-15%. Compared to the prior exam, left ventricular function is slightly decreased. The right ventricle is normal size. Right ventricular systolic function is moderately reduced. There is a pacemaker lead in the right ventricle. There is moderate mitral regurgitation. Compared to the prior echo study, there has been an increase in the severity of mitral regurgitation. There is severe tricuspid regurgitation. Compared to the prior echo exam, there has been an increase in TR severity. The right ventricular systolic pressure is estimated at 43 mmHg assuming a right atrial pressure of 15 mm Hg. Compared to the prior echo exam, there has been an increase in the severity of pulmonary hypertension. 12-lead ECG ECG not available for review Assessment & Plan Assessment 71 yo M h/o HFrEF, CAD s/p GERARD to distal LAD 11/2015 transferred from [facility] with heart failure and troponin elevation # HFrEF (acute on chronic systolic heart failure): probably from non-ischemic cardiomyopathy but it could also be from diffuse CAD. s/p AICD 2015. Patient continues to appear hypervolemic to me but has history of present illness with IV diuresis. He continues to have conversation dyspnea, suggesting NYHA class IV. His LVEF is per 15% based on echo 10/29/2016. It is possible that patient is having cardiorenal syndrome due to low cardiac couplet. I spent significant time regimen the patient and about his condition and answered their questions. I recommended that we proceed with right heart cath to evaluate his hemodynamics and his cardiac output to tailor his therapy. Recommendations as below: - RHC today. Informed consent after discussing risks and benefits obtained. If patient has hypervolemia, we will consider him for dopamine gtt or inotropic gtt # CAD s/p NSTEMI treated with GERARD to distal LAD 12/12/2015: Patient has not had chest pain prior to admission or since admission. His troponins are elevated but I suspect these are from heart failure. We will continue medical management for now and consider coronary angiography once creatinine is baseline. - Continue aspirin 81mg daily - Continue clopidogrel 75mg daily - Continue atorvastatin 10mg qhs - Continue heparin gtt - Continue to trend troponins # VF and VT: treated with AICD shock 07/2016. Patient did have nonsustained VT on telemetry. Continue to monitor. # Atrial fibrillation: in sinus since admission. - Continue dofetilide # PAD: has diffuse plaque on ultrasound at [place]. No new symptoms. Plan: - Management as CAD # Severe COPD: continue oxygen # VELIA: patient has congenital solitary right kidney and now has VELIA with IV diuresis. This could be cardiorenal syndrome. Will tailor therapy with RHC above. VTE Prophylaxis: Other (Heparin gtt) VTE Mechanical Devices: Intermittant Pneumatic CD Resuscitation Status: CPR: Attempt Resuscitation Jazmín Jones MD Oct 31, 2016 14:21
[2016-10-31] MEDS ORDERED: 0.9% Sodium Chloride 250 ML ONE (14:40)
[2016-10-31] MEDS ORDERED: fentaNYL-PF 50 mCg/mL 2 mL Inj ONE (14:42)
[2016-10-31] MEDS ORDERED: Heparin 5,000 Units/500 mL NS Premix IV ONE (14:45)
--- NOTE | 2016-10-31 15:55 | NUR ---
Social Work: Initial Assessment Data & Assessment: See Initial Assessment. EMR reviewed. Patient is a 71 y/o male that admitted with CHF per H&P. Advertising Agent met with patient and patient's /DPOA, Nayeli Brock [phone], to complete initial assessment, discuss discharge planning and SW role reviewed. Patient is alert and oriented x 3. Patient does not have a re-admit score. Patient states that his , Nayeli Brock [phone], is his DPOA. SW requested a copy of DPOA. Patient confirmed that his PCP is Dr. Westley Huerta and insurance is Medicare and [employer] Patient does not have LTC or VA benefits. Patient lives at home with his in a one story home with no steps where he is independent at baseline. Patient does drive. Patient has no SNF and no HH history. SW discuss home health and patient stated that if therapy is needed upon discharge he does not want HH and will discharge to Outpatient therapy. . No discharge needs identified at this time. SW to continue to follow if any needs arise. Plan: Anticipated discharge home via POV when medically ready. No discharge needs identified at this time. SW to continue to follow if any needs arise. Martín Whyte LMSW, SAM Addendum: 10/31/16 at 1606 by MARTÍN WHYTE Amended: Links added.
--- NOTE | 2016-10-31 16:14 | NUR ---
Report called to patient's nurse, transferred back to room in stable condition. right IJ site without bleeding or hematoma.
--- NOTE | 2016-10-31 16:43 | PCM.CVCATH ---
Cardiac Cath Report Date of Service Oct 31, 2016 Primary Indication Heart failure, acute kidney injury Procedure right heart cath Vascular Access Right internal jugular vein using 6 Fr sheath, closure with manual hold. Procedure Details Coronary angiography details: The patient was brought to the cardiac catheterization lab in the fasting state. Patient was laid supine on the cardiac catheterization table and the right neck was prepped and draped in the usual sterile fashion. One percent Xylocaine was infiltrated over the right internal jugular vein. Next, a sheath was then placed in the right internal jugular vein under ultrasound and fluoroscopy guidance. [place] was done through the sheath and the hemodynamics were obtained. Medications/Fluoro Time Medications administered: 1.Fentanyl: 25 mcg IV Contrast (Isovue): 0 mls Blood loss: 5 mls Findings 1) Right heart cath: * RA Mean Pressure 27 mmHg * RV Pressure 63/7 (RVEDP 27mmHg) * PA Pressure 61/27 (41 mmHg) * PCWP 30 mmHg * PA saturatiin: 49.4 * Arterial saturation:93% (pulse ox) * Hemoglobin 16.5 * Ty Cardiac Output 3.1 L/min / Ty Cardiac Index 1.4 L/min/m2 Complications There were no periprocedural complications identified. Summary Severely elevated right and left sided elevated pressures with low output heart failure. Pulmonary hypertension due to heart failure. Recommendations Patient has advanced (stage D) heart failure. Management per inpatient cardiology after discussion with family (inotropic agent vs. hospice). Poor prognosis overall. Jazmín Jones MD Oct 31, 2016 16:43
--- NOTE | 2016-10-31 17:12 | NUR ---
Wound Care Wound evaluation orders received, pt seen briefly prior to going to animal laboratory helper. 71 yo male presents with blistered lower extremities, feet are cold and ruberous in elevation and I am unable to palpate pulses at either leg. Left dorsal foot- 3 cm diameter blister between great toe and 2nd toe. Left 4th toe - 1 cm diameter dry ulcer with scab. Right 4th toe dorsal skin blistered. Right anterior leg 1.5 cm diameter wound, weeping serous fluid copiously. Right posterior calf 6 cm diameter broken blister also weeping copiously. No debridement needed or performed , wounds are dressed with Xeroform and abd pads then Kerlix wrapped. Exact etiology of these wounds seems to be arterial in nature, recommend continue with absorbent dressings, changed by nursing PRN.
[2016-10-31] MEDS ORDERED: Sodium Chloride LOK Flush 10 mL Syringe IVFLUSH PRN ×2 (17:55)
[2016-10-31] MEDS: DOBUTamine 500 mg/250 D5W 500,000 MCG in IV Premix 1 EACH IV SCH (19:11)
--- NOTE | 2016-10-31 19:55 | DRSVH ---
PROCEDURE: X-RAY PICC LINE PLACEMENT BY NURSE ([id number]) INDICATIONS: Venous access; can't lie flat COMPARISON: [facility], CR, CHEST 1 VIEW, 10/27/2016, 22:00. FINDINGS: PICC was placed by the intravenous therapy team from the right side. Fluoroscopic spot fi lm demonstrates tip of PICC at the cavoatrial junction. IMPRESSION: Tip of PICC lies at the cavoatrial junction. Dictated by: Tariq Avelar M.D. on 10/31/2016 at 19:52 Approved by: Tariq Avelar M.D. on 10/31/2016 at 19:53
[2016-10-31] MEDS: LORazepam 1 mg Tablet PO PRN (23:31)
[2016-11-01] VITALS (11 sets, daily range): BP systolic 104–118; BP diastolic 57–80; PULSE 85–120; RESP 16–20; O2SAT 94–100
--- NOTE | 2016-11-01 00:16 | NUR ---
Pain/Anxiety Pt alert and oriented x3. Denies any chest pain. He reports of chronic shoulder ache and reported Vicodin effective. Ativan given for anxiety. Griffin placed with good urine output. [facility]
[2016-11-01] MEDS: HYDROcodone-APAP 5-325 mg Tablet PO PRN ×3 (03:05→21:33)
[2016-11-01 05:03] LABS: BASOPHILS % (AUTO) 0.3 % (0-3); MONOCYTES % (AUTO) 14.1 % (4-12); Mean Corpuscular Hemoglobin 29.3 pg (27.0-35.0); Mean Corpuscular Volume 81.6 fL (81-100); NEUTROPHILS % (AUTO) 65.1 % (40-74); Platelet Count 120 bil/L (150-400)
[2016-11-01 05:26] LABS: Magnesium 1.9 mg/dL (1.6-2.6)
--- NOTE | 2016-11-01 06:33 | NUR ---
Pt remains hemodynamically stable. Dobutamine remains at 2 mcg to assist with cardiac kick. Pt is up and down in bed, sitting on edge of bed. Uses call light to get back up into bed. Lower extremities cont. to weep. Drsg changed at 0400. Vital signs are stable. Potassium 6.5 this am, Resident paged, no call back yet. Will cont. to monitor closely.
[2016-11-01] MEDS ORDERED: Insulin Human REGular 300 Unit/3 mL Inj IV ONE (06:45)
[2016-11-01] MEDS ORDERED: Insulin Human REGular-Omnicell 100 Unit/mL IV ONE (07:05)
[2016-11-01] MEDS ORDERED: Mag Sulf 4 Gm/100 mL IV Premix (Mag < 1.6 & Creat < 2) IV ONE (07:40)
[2016-11-01] MEDS: Insulin LISPRO 300 Unit/3 mL Inj SUBQ SCH ×4 (07:54→21:21)
[2016-11-01] MEDS: Albuterol-Ipratropium 3 mL Inhalation Solution NEB SCH ×4 (08:46→20:36)
[2016-11-01] MEDS ORDERED: Furosemide 10 mg/mL 4 mL Inj IVPUSH ONE (09:30)
--- NOTE | 2016-11-01 09:46 | NUR ---
NUTRITION ASSESSMENT: ASSESS:71 YO male admitted to CCU with worsening lower extremity edema. He reports onset of edema since July but worsened over the past week with the development of ruptured blisters. At [facility], the patient underwent an echocardiogram and was found to have an estimated ejection fraction of 10-15%,which is worse than his prior echocardiogram (11/2015) with EF 15-20%. There was also elevations of troponin-I. The patient endorses shortness of breath, which is chronic, and some neck pain from a prior injury. He also reports having a left inguinal hernia that he feels has worsened with the recent swelling. Patient feels his urine output has decreased despite being on Lasix. POD #1 following right heart cath procedure. Per cardiology, patient has advanced (stage D) heart failure. Management per inpatient cardiology after discussion with family (inotropic agent vs. hospice); poor prognosis overall. Code status: full. PMHx:CAD, CHF, dyslipidemia, COPD, solitary kidney, pulmonary HTN, anxiety, AICD, cardiomyopathy, DM2, left lung nodule, HTN, STAN. DIET:Heart healthy consistent carb. PO intake not yet recorded. LABS: Reviewed. Na 126, K+ 6.5, BUN 51, Total Bili 1.4, AST 222, ALT 333, A1c 8.5. MEDICATIONS: Reviewed. Lasix, ativan, insulin, dobutamine. NUTRITION FOCUSED PHYSICAL ASSESSMENT: GI symptoms / stool: No stool.Stan: 21. Skin Integrity: Per [employer] Applications Analyst, patient with blistered lower extremities, feet are cold and ruberous in elevation, unable to palpate pulses at either leg. Left dorsal foot- 3 cm diameter blister between great toe and 2nd toe. Left 4th toe - 1 cm diameter dry ulcer with scab. Right 4th toe dorsal skin blistered. Right anterior leg 1.5 cm diameter wound, weeping serous fluid copiously. Right posterior calf 6 cm diameter broken blister also weeping copiously. No debridement needed or performed. Exact etiology of these wounds seems to be arterial in nature, ANTHROPOMETRICS: Current Wt: 99.8 kgBMI: 31.0 kg/m2. Admit weight: 99.8 kg IBW: 75.45 (132% IBW) ESTIMATED NEEDS (OBESITY, WOUNDS, FLUID OVERLOAD): Calories: 1886 - 2264 kcal (25 - 30 kcal / kg IBW) Protein: 136 - 151 g protein (1.8 - 2. g/ kg IBW) Fluid: Approx. 2495 mL fluid (25 mL / kg BW) NUTRITION DIAGNOSIS: 1)Increased nutrient needs related to increased demand for nutrients, as evidenced by multiple lower extremity wounds. INTERVENTION: 1) Will add Glucerna to lunch and dinner trays. MONITOR/EVALUATE: Diet / supplement tolerance, PO intake, labs, GI/nutrition status. Follow up per moderate nutrition risk guidelines.
--- NOTE | 2016-11-01 13:36 | PCM.PNMED ---
Subjective Date of Service Nov 01, 2016 Subjective No overnight events. This morning patient had a 7-beat run of v tach but asymptomatic. Patient reports feeling well this morning. He reports sleeping well. Patient without any complaints - denies chest pain, abdominal pain, nausea , emesis. Exam Vital Signs Vital Sign - Last Date Time Temp Pulse Resp B/P Pulse Ox O2 Delivery O2 Flow Rate FiO2 11/01/16 08:50 94 16 95 Room Air 11/01/16 08:30 36.7 104/80 2.00 Intake and Output 10/31/16 10/31/16 11/01/16 Cumulative From/Thru 15:00 23:00 07:00 10/30/16 18:00 - 11/01/16 06:26 Intake Total 585 ml 785 ml Output Total 700 ml 900 ml Balance -115 ml -115 ml Intake Oral 520 ml 720 ml IV Total 65 ml 65 ml Output Urine Total 700 ml 900 ml # Bowel Movements 0 0 Exam General: Chronically ill-appearing, No acute distress, well-developed, well- nourished, appropriately interactive HEENT: Normocephalic, atraumatic. External ears without defect. Anicteric sclerae, moist conjunctivae, and no lid lag. Dry oral mucosa. Neck: Supple Cardiovascular: Distant heart sounds. Regular rate and rhythm with no murmurs, rubs, or gallops appreciated Pulmonary: Wheezing bilaterally. Decreased sound at bases. Mild crackles left base. Normal respiratory effort with no use of accessory muscles. Abdomen: Bowel tones present. Soft, nontender, nondistended. Extremities: Bilateral lower extremity edema with pitting up to sacrum. Skin: Lower extremity with chronic venostasis changes, erythema. Clean dry dressing on lower extremities bilaterally Neurological: Cranial nerves grossly intact. Psychiatric: Normal mood and affect. Alert and oriented to person, place, and time. IVs and Medications Medications Reviewed: Medications were reviewed in detail Lab and Diagnostics Result Diagram: 11/01/16 0448 11/01/16 044 Cardiac Echo Impressions Echocardiogram 10/29/2016 The left ventricle is severely dilated. The EF is estimated to be 10-15%. Compared to prior exam, left ventricular function is slightly decreased. The right ventricle is normal size. Right ventricular systolic is moderately reduced. There is a pacemaker lead in the right ventricle. There is moderate mitral regurgitation. Compared to prior echo study, there has been an increase in the severity of mitral regurgitation. There is severe tricuspid regurgitation. Compared to prior echo exam, there has been an increase in TR severity. The RVSP is estimated at 43mmHg assuming a right atrial pressure of 15mm Hg. Compared to prior echo exam, there has been an increase in the severity of pulmonary hypertension. Dr. Santos Bernard 10/29/2016 05:31 Additional Diagnostics Date: 10/29/2016 PROCEDURE: PVE Unilateral Right IMPRESSION: No deep venous thrombosis in the right lower extremity. Hung Aden MD on 10/29/2016 ----- Date 10/27/2016 PROCEDURE: ARTERIAL LOW.EXTREM.BILATERAL IMPRESSION: Scattered bilateral lower extremity atheromatous plaque as above, without definite evidence of focal stenosis. Left dorsalis pedis artery is not evaluated secondary to soft tissue changes. Shaan Nogueira MD on 10/28/2016 Assessment & Plan Patient is a 70-year-old male with CAD s/p PCI (GERARD to distal LAD), CHF s/p AICD , dyslipidemia, COPD, solitary congenital kidney and pulmonary hypertension presenting as a transfer from [facility] and admitted for worsening systolic heart failure and lower extremity edema. Hospital day #2. 1. HFrEF with dilated cardiomyopathy. Present on admission. Active -Decrease ejection fraction on recent echo (EF 15-20% to 10-15%) -Likely secondary to ischemia -Right heart catheterization with findings of elevated pressures -Stage D heart failure with poor prognosis per Cardiology. Options were inotropic driven diuretic therapy with the hope that patient will be able to tolerate standard heart failure medications once he is euvolemic or hospice. Patient and family opted for inoptrope. -Continue dobutamine at 3mcg/kg/min -Start Lasix 40mg IV. Titration per Cardiology -Recommendations per cardiology appreciated 2. Elevated troponin, acute. Present on admission. Active -Continue heparin drip -Cardiology following. Recommendations per cardiology appreciated 3. Bilateral lower extremity edema. Present on admission. Active -Likely secondary to worsening heart failure -Ruptured blisters and ulcers present - Wound Care consult 4. Acute kidney injury. Present on admission. Improving -Note that patient has solitary congenital kidney -Holding lisinopril and spironolactone -Improved. Creatinine normalized -Nephrology consultation 5. Left inguinal hernia, chronic. Present on admission. Active -Patient reports increased pain with onset of swelling -Consider ultrasound if pain persists 6. COPD, chronic. Present on admission. Currently stable -DuoNeb QIDWA -Albuterol PRN 7. Type 2 diabetes mellitus, chronic. Present on admission. Stable -Bedside blood glucose checks -Hold home glyburide -Low dose correctional lispro -HbA1c pending 8. Dyslipidemia, chronic. Present on admission. Stable -Continue home dose atorvastatin 10mg in the evening -Lipid panel shows cholesterol is well controlled 9. Anxiety, chronic. Present on admission. Presumed stable -Lorazepam 1mg TID and before bed PRN Disposition: Pending hospital course; anticipate discharge home after diuresis and euvolemic Pain Evaluation: Adequate Pain Control VTE Prophylaxis: Other (Heparin gtt) VTE Mechanical Devices: Intermittant Pneumatic CD Resuscitation Status: CPR: Attempt Resuscitation Attending Statement The patient was seen and examined together with Dr. Eugene on 11/01/2016 and I agree with the history, exam and plan as outlined in the note above. . Tevin Eugene DO Nov 01, 2016 11:55 Frank Power MD Nov 02, 2016 17:44
[2016-11-01] MEDS ORDERED: Calcium GLUCOnate 10% (Gm) 1 Gm/10 mL Inj IV STA (14:00)
[2016-11-01] MEDS ORDERED: Furosemide 10 mg/mL 4 mL Inj IVPUSH SCH (14:35)
--- NOTE | 2016-11-01 16:14 | NUR ---
P: Hyperkalemia I: Pt potassium of 6.5 corrected with Kayexalate , D50 and Lasix 40 mg. Griffin output after Lasix is 2000cc. Repeat K+ reported as 6.7. Dr. Eugene and Karen notified. Calcium gluconate IV, Lasix 40 mg IV and Kayexalate. Lab changed to BNP and Potassium ran again and came back 5.0. notified and lab called to question the result. Lab ran it again and came back 4.9. Pt having some PVC's and a run of about 6 beats of v-tach. EKG done and aware. Up at bedside. Feet with dressings on and elevated. Family at bedside. Pt taking diet and fluids well. Pt had food from outside and chocolate as it is his Anniversary today. aware. E: Stable S: Alert and oriented. Uses call light appropriately. Frequent rounding.
--- NOTE | 2016-11-01 17:37 | DRSVH ---
PROCEDURE: US RENAL SONOGRAM INDICATIONS: cardio renal syndrome TECHNIQUE: Real-time scanning was performed of the kidneys and bladder, with image documentation. COMPARISON: [facility], CR, CHEST 1 VIEW, 10/27/2016, 22:00. [facility], CR, XR PIC C LINE PLACE BY NURSE, 10/31/2016, 17:47. FINDINGS: Kidneys: Right kidney measures 15 cm long; left kidney is reportedly absent. Right renal cortical thickness is 1.9 cm; Renal cortical echotexture is normal. No hydronephrosis or nephrolithiasis. No suspicious solid mas s lesions. There are 2 renal cysts which demonstrate simple appearance, measuring 1.5 and 1.4 cm. Bladder: Unremarkable since it is decompressed due to an indwelling Griffin catheter. Miscellaneous: No free pelvic fluid. Incidentally noted right pleural effusion. No ascites IMPRESSION: Simple right renal cysts. Left kidney not sonographically visualized and reportedly absent. Incidentally noted right pleural fluid Dictated by: Shaan Nogueira M.D. on 11/01/2016 at 17:33 Approved by: Shaan Nogueira M.D. on 11/01/2016 at 17:35
[2016-11-01] MEDS: DOBUTamine 500 mg/250 D5W 500,000 MCG in IV Premix 1 EACH IV SCH (18:21)
--- NOTE | 2016-11-01 18:44 | PCM.PNCARD ---
Subjective Date of service Nov 01, 2016 Chief Complaint heart failure, troponin elevation History of Present Illness 71 yo M h/o HFrEF, CAD s/p GERARD to distal LAD 11/2015 transferred from [facility] with heart failure and troponin elevation. Patient states that his baseline was a year ago when he could walk a few miles with mild dyspnea due to COPD. In November 2015, patient was diagnosed with systolic heart failure in the setting of myocardial infarction. He underwent urgent GERARD placement to his distal LAD. Unfortunately, his LVEF did not improve significantly despite revascularization and medical management. He got an AICD placed subsequently. In July 2016, he had VF arrest and his AICD properly shocked him out of it. Since his myocardial infarction in 2015, patient has been unable to walk for several miles as before. In July 2016, patient started noticing lower extremity edema. He went to urgent care and was placed on diuretics. He then went to [place] and was able to walk reasonably well over there. In August the grocery edema got even better with therapies. However, the lower extremity edema got worse last month. His dyspnea on exertion has also progressed significantly to the point that he is unable to do his ADLs now. Patient denies chest pain, palpitations, lightheadedness, or syncope. He also denies fevers, chills, nausea, or vomiting. Subjective: Patient tolerated the dobutamine gtt well overnight. Denies any new symptoms. His potassium high today morning. He continues to have PVCs and non-sustained VT on telemetry. PROBLEM LIST: # HFrEF (systolic heart failure): probably from non-ischemic cardiomyopathy but it could also be from diffuse CAD. 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 Exam Vital Signs Vital Sign - Last Date Time Temp Pulse Resp B/P Pulse Ox O2 Delivery O2 Flow Rate FiO2 11/01/16 18:20 120 11/01/16 16:30 36.7 17 112/62 99 Nasal Cannula 1.00 Intake and Output 10/31/16 10/31/16 11/01/16 Cumulative From/Thru 15:00 23:00 07:00 10/30/16 18:00 - 11/01/16 06:26 Intake Total 585 ml 785 ml Output Total 700 ml 900 ml Balance -115 ml -115 ml Intake Oral 520 ml 720 ml IV Total 65 ml 65 ml Output Urine Total 700 ml 900 ml # Bowel Movements 0 0 General appearance: in minimal respiratory distress, frail, pleasant, cooperative HEET: Normocephalic atraumatic, no scleral icterus, tongue midline, mucous membranes moist Neck: supple Cardiovascular: RRR, distant S1 and S2, no murmurs/ rubs/gallops, PMI laterally displaced, JVP 12cm H20, 2 to 3+ peripheral edema b/l Respiratory: Fair aeration, able to speak in 4-5 words at a time, coarse b/l Abdomen: Soft, nontender, obese, + bowel sounds Neuro: Alert, no facial droop, tongue midline, no gross motor deficits Psych: anxious Skin: ecchymosis on both forearms Lab and Diagnostics Result Diagram: 11/01/16 0448 11/01/16 1744 X-Rays, CTs and MRIs Echo 10/29/2016: The left ventricle is severely dilated. The ejection fraction is estimated to be 10-15%. Compared to the prior exam, left ventricular function is slightly decreased. The right ventricle is normal size. Right ventricular systolic function is moderately reduced. There is a pacemaker lead in the right ventricle. There is moderate mitral regurgitation. Compared to the prior echo study, there has been an increase in the severity of mitral regurgitation. There is severe tricuspid regurgitation. Compared to the prior echo exam, there has been an increase in TR severity. The right ventricular systolic pressure is estimated at 43 mmHg assuming a right atrial pressure of 15 mm Hg. Compared to the prior echo exam, there has been an increase in the severity of pulmonary hypertension. Assessment & Plan Assessment 71 yo M h/o HFrEF, CAD s/p GERARD to distal LAD 11/2015 transferred from [facility] with heart failure and troponin elevation # HFrEF (acute on chronic systolic heart failure): probably from non-ischemic cardiomyopathy but it could also be from diffuse CAD. s/p AICD 2015. RHC 2016 showed severely elevated right and left sided filling pressures with low cardiac output, suggesting ACC stage D heart failure. He continues to have conversation dyspnea, suggesting NYHA class IV. His LVEF is per 15% based on echo 10/29/2016. I spent significant time regimen the patient and about his condition and answered their questions. Recommendations as below: - Continue dobutamine gtt at 3mcg/kg/min - Start furosemide IV 40mg q6hrs # CAD s/p NSTEMI treated with GERARD to distal LAD 12/12/2015: Patient has not had chest pain prior to admission or since admission. His troponins are elevated but I suspect these are from heart failure. We will continue medical management for now and consider coronary angiography once creatinine is baseline. - Continue aspirin 81mg daily - Continue clopidogrel 75mg daily - Continue atorvastatin 10mg qhs - Continue heparin gtt for now # VF and VT: treated with AICD shock 07/2016. Patient did have nonsustained VT on telemetry. Continue to monitor. # Atrial fibrillation: in sinus since admission. - Continue dofetilide # PAD: has diffuse plaque on ultrasound at [place]. No new symptoms. Plan: - Management as CAD # Severe COPD: continue oxygen # VELIA: patient has congenital solitary right kidney and the VELIA and hyperkalemia are due to cardiorenal syndrome (diuresis without inotropic support ). BUN and creatinine improving with dobutamine gtt Problems: VTE Prophylaxis: Other (Heparin gtt) VTE Mechanical Devices: Intermittant Pneumatic CD Resuscitation Status: CPR: Attempt Resuscitation Time spent I spent 60 minutes of critical care time taking care of this patient with end stage heart failure, cardiorenal syndrome, and hyperkalemia. Jazmín Jones MD Nov 01, 2016 18:44
--- NOTE | 2016-11-01 19:33 | CONS ---
[address] [address] CONSULTATION REPORT PATIENT: HARRIET KOHLI : 1945 MR#: [id number] ADMIT: 10/30/2016 JOB ID: [id number] DATE OF SERVICE: PRIMARY CARE PHYSICIAN: Westley Huerta HISTORY: The patient is a very pleasant, but unfortunate, 71-year-old, white male who was admitted to [facility] for decompensated bi-ventricular congestive heart failure. He has had a persistent hyperkalemia and renal consultation is being sought for further evaluation of his hyperkalemia. He has a relatively recently diagnosed, severe dilated ischemic cardiomyopathy. In November of last year, he had several stents placed to the LAD in November of last year. At that time, he was found to have an ejection fraction of approximately 20%. He was treated with appropriate adrenergic blockade, MENA inhibitor, and mineralocorticoid receptor antagonists along with diuretics. Since that time, he has had a progressive decline in his quality of life and activities of daily living. He subsequently required an AICD placement. In July of this year, he had a VFib arrest with a prompt response by his AICD. He has had significant impairment in his simple activities of daily living. Over the last several weeks to months, he has had increasing lower extremity edema, dyspnea at rest and with minimal exertion, orthopnea, but no chest pain with this. Despite his medical therapy, he has remained refractory to this. Hi past renal history is remarkable for a single episode of a kidney stone. He states that during an evaluation previous to this, he was found to have a solitary kidney. Otherwise, he denies a history of any hematuria, proteinuria, recurrent urinary tract infection, chronic renolithiasis other that single episode, frequent use of nonsteroidal anti-inflammatories. He does have a history of [id number] diabetes mellitus for which he takes glyburide. He denies history of any prior proteinuria from this. There is also a longstanding history of cardiac disease, as detailed above. This has further been complicated by atrial fibrillation and COPD. PAST MEDICAL HISTORY: Significant for a solitary kidney, ischemic cardiomyopathy with chronic biventricular congestive heart failure, atrial fibrillation, COPD, congenital absence of a kidney, and ventricular fib. He also has a history of hyperlipidemia. PAST SURGICAL HISTORY: Remarkable for AICD placement and several stent placement and cataract surgery. He has also had a sebaceous cyst excision. ALLERGIES: He is allergic to: 1. PENICILLIN. 2. STATINS. 3. SULFAS. 4. LEVOFLOXACIN. 5. METFORMIN. 6. OXYCODONE. SOCIAL HISTORY: He does state that he continues to smoke intermittently and uses ethanol episodically. FAMILY HISTORY: Noncontributory. REVIEW OF SYSTEMS: As detailed above. Otherwise, he denies any fever, chills, nausea, vomiting, or diarrhea. PHYSICAL EXAMINATION: Revealed a thin, well-developed, 71-year-old white male, who was alert and oriented x3, in no distress at time of my evaluation. His blood pressure is 118/74, with a pulse rate of 100. HEENT examination was unremarkable. Sclerae, cornea and conjunctivae were within normal limits. There was no evidence of bitemporal wasting or dry mucous membranes. Neck is supple without adenopathy, thyromegaly or jugular venous distention. Lungs showed some increased hyper-resonance and diminished breath sounds bilaterally. There were some scattered bibasilar rales. Heart was irregularly irregular. Abdomen was soft and mildly distended, with evidence of a free fluid wave. There was no tenderness, rebound, guarding or masses noted. His liver was enlarged and pulsatile to palpation. Extremities showed diffuse intense erythema to both feet, more pronounced on the right as compared to the left, consistent with cellulitis. There is pitting edema with evidence of anasarca throughout his lower extremities up through his sacral and buttocks area. Skin turgor was good, and there was no evidence of any rashes. LABORATORY EXAMINATION: On admission, his potassium was 6.4, and repeat potassium has now revealed that has improved to 5.0. His most recent lab obtained at noon today showed a sodium of 131, potassium 5.0, chloride of 89, bicarbonate 23. BUN and creatinine were 45 and 1.19. His liver function studies were elevated with an AST of 199, an ALT of 339 and an albumin of 3.9. Urine is pending at time of this dictation. His white count is 12.9, hemoglobin of 15.1, hematocrit 42.1. IMPRESSION: 1. Cardiorenal syndrome. 2. Solitary kidney. 3. Hyponatremia secondary to congestive heart failure. 4. Hyperkalemia, which is partially due to lab error. 5. Hypertension with hypertensive heart disease and hypertensive nephrosclerosis with biventricular congestive heart failure. 6. Anasarca. 7. Elevated liver function studies secondary to right-sided congestive heart failure with passive congestion. RECOMMENDATION: 1. I would like to get a urinalysis on him along with a hepatitis profile, a urinalysis, and a serum protein electrophoresis. 2. I would like to get an abdominal ultrasound with focus on the kidney and to scan for a fluid evaluation. 3. I would like to continue the IV Lasix and tomorrow we could perhaps switch to oral torsemide 20 mg twice a day. 4. In the next several days, we may wish to consider re-adding spironolactone 12.5 mg twice a day and possibly chlorthalidone to maximize his diuresis. Once again, I would like to thank you for allowing me to participate in the care of this most pleasant but somewhat unfortunate patient. I will be following him closely with you.
[2016-11-01] MEDS: Furosemide 10 mg/mL 4 mL Inj IVPUSH SCH (21:21)
[2016-11-01] MEDS: LORazepam 1 mg Tablet PO PRN (21:32)
[2016-11-02] VITALS (12 sets, daily range): BP systolic 93–124; BP diastolic 52–85; PULSE 77–122; RESP 16–25; O2SAT 93–99
[2016-11-02] MEDS: Furosemide 10 mg/mL 4 mL Inj IVPUSH SCH ×4 (00:49→12:23)
[2016-11-02] MEDS: DOBUTamine 500 mg/250 D5W 500,000 MCG in IV Premix 1 EACH IV SCH (04:22)
[2016-11-02 05:09] LABS: BASOPHILS % (AUTO) 0.2 % (0-3); EOSINOPHILS % (AUTO) 1.9 % (0-5); MONOCYTES % (AUTO) 12.9 % (4-12); Mean Corpuscular Hemoglobin 29.3 pg (27.0-35.0); Mean Corpuscular Volume 81.1 fL (81-100); NEUTROPHILS % (AUTO) 68.2 % (40-74); Platelet Count 147 bil/L (150-400)
[2016-11-02 05:31] LABS: Magnesium 1.8 mg/dL (1.6-2.6)
[2016-11-02] MEDS: LORazepam 1 mg Tablet PO PRN ×2 (07:55→23:11)
[2016-11-02] MEDS: HYDROcodone-APAP 5-325 mg Tablet PO PRN ×3 (07:56→23:11)
[2016-11-02] MEDS: Insulin LISPRO 300 Unit/3 mL Inj SUBQ SCH ×4 (08:00→20:18)
[2016-11-02] MEDS: Albuterol-Ipratropium 3 mL Inhalation Solution NEB SCH ×4 (08:15→21:05)
--- NOTE | 2016-11-02 11:46 | PCM.PNNEPH ---
Subjective Date of Service Nov 02, 2016 Subjective The patient's renal function continues to improve. He appears to be much more cough, shortness of breath. He states he is resting better and has less orthopnea. He also denies any chest pain, nausea or vomiting. His systolic blood pressure has been in the low 100s to 110s range. The last 24 hours he has had a 28 and and 5680 in an already first 8 hours today he has had 4050 and urine output. Abdominal ultrasound showed a single right kidney which was approximately 15 cm in length. The architecture was normal and was no evidence of any masses or hydronephrosis. There was no evidence of any ascites. His renal functions continued to improve. This morning his sodium is 133 potassium 4.5 chloride 92 bicarbonate 28, BUN and creatinine were 35.95 respectively. His uric acid is 10.3. Exam Vital Signs Vital Sign - Last Date Time Temp Pulse Resp B/P Pulse Ox O2 Delivery O2 Flow Rate FiO2 11/02/16 11:28 112 11/02/16 08:15 Supplement Oxygen 11/02/16 08:10 17 97 4.00 11/02/16 08:06 36.6 110/73 Intake and Output 11/01/16 11/01/16 11/02/16 Cumulative From/Thru 15:00 23:00 07:00 10/30/16 18:00 - 11/02/16 06:20 Intake Total 243 ml 632 ml 1660 ml Output Total 4900 ml 4050 ml 9850 ml Balance -4657 ml -3418 ml -8190 ml Intake Oral 400 ml 1120 ml IV Total 243 ml 232 ml 540 ml Output Urine Total 4900 ml 4050 ml 9850 ml # Bowel Movements 0 Exam HEENT examination is unremarkable. Neck is supple without adenopathy, thyromegaly, or joint effusions distention. His lungs on continue to show increased AP diameter but are clear to auscultation. Heart was irregularly irregular. Abdomen is soft without any tenderness or rebound guarding or masses noted. He still has some pulsatile quality of his liver and his liver remains enlarged. Extremities continue to show pitting edema his side but this appears to be a bit less. Lab and Diagnostics Result Diagram: 11/02/16 0430 11/02/16 0430 Cardiac Echo Impressions Echocardiogram 10/29/2016 The left ventricle is severely dilated. The EF is estimated to be 10-15%. Compared to prior exam, left ventricular function is slightly decreased. The right ventricle is normal size. Right ventricular systolic is moderately reduced. There is a pacemaker lead in the right ventricle. There is moderate mitral regurgitation. Compared to prior echo study, there has been an increase in the severity of mitral regurgitation. There is severe tricuspid regurgitation. Compared to prior echo exam, there has been an increase in TR severity. The RVSP is estimated at 43mmHg assuming a right atrial pressure of 15mm Hg. Compared to prior echo exam, there has been an increase in the severity of pulmonary hypertension. Dr. Santos Bernard 10/29/2016 05:31 Additional Diagnostics Date: 10/29/2016 PROCEDURE: PVE Unilateral Right IMPRESSION: No deep venous thrombosis in the right lower extremity. Hung Aden MD on 10/29/2016 ----- Date 10/27/2016 PROCEDURE: ARTERIAL LOW.EXTREM.BILATERAL IMPRESSION: Scattered bilateral lower extremity atheromatous plaque as above, without definite evidence of focal stenosis. Left dorsalis pedis artery is not evaluated secondary to soft tissue changes. Shaan Nogueira MD on 10/28/2016 Plan Impression Impression #1 acute decompensated congestive heart failure number to cardiorenal syndrome #3 solitary kidney #4 hypertension with hypertensive heart disease and hypertensive nephrosclerosis with congestive heart failure number for hyperuricemia Recommendations #1 I discussed the case with cardiology and agree with instituting spironolactone. As we will continue another day of IV diuretics I would like to get Ceasar wraps applied to both eyes and attempt to augment his diuresis. I will also like to start him on allopurinol 100 mg once a day. Toni Earl DO Nov 02, 2016 11:46
--- NOTE | 2016-11-02 12:04 | PCM.PNCARD ---
Subjective Date of service Nov 02, 2016 Chief Complaint heart failure, troponin elevation History of Present Illness 71 yo M h/o HFrEF, CAD s/p GERARD to distal LAD 11/2015 transferred from [facility] with heart failure and troponin elevation. Patient states that his baseline was a year ago when he could walk a few miles with mild dyspnea due to COPD. In November 2015, patient was diagnosed with systolic heart failure in the setting of myocardial infarction. He underwent urgent GERARD placement to his distal LAD. Unfortunately, his LVEF did not improve significantly despite revascularization and medical management. He got an AICD placed subsequently. In July 2016, he had VF arrest and his AICD properly shocked him out of it. Since his myocardial infarction in 2015, patient has been unable to walk for several miles as before. In July 2016, patient started noticing lower extremity edema. He went to urgent care and was placed on diuretics. He then went to [place] and was able to walk reasonably well over there. In August the grocery edema got even better with therapies. However, the lower extremity edema got worse last month. His dyspnea on exertion has also progressed significantly to the point that he is unable to do his ADLs now. Patient denies chest pain, palpitations, lightheadedness, or syncope. He also denies fevers, chills, nausea, or vomiting. Subjective: Patient had good urine output yesterday, with urine output of 8L and net negative about 7L with IV dobutamine gtt and IV furosemide. PROBLEM LIST: # HFrEF (systolic heart failure): probably from non-ischemic cardiomyopathy but it could also be from diffuse CAD. 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 Exam Vital Signs Vital Sign - Last Date Time Temp Pulse Resp B/P Pulse Ox O2 Delivery O2 Flow Rate FiO2 11/02/16 11:28 112 11/02/16 08:15 Supplement Oxygen 11/02/16 08:10 17 97 4.00 11/02/16 08:06 36.6 110/73 Intake and Output 11/01/16 11/01/16 11/02/16 Cumulative From/Thru 15:00 23:00 07:00 10/30/16 18:00 - 11/02/16 06:20 Intake Total 243 ml 632 ml 1660 ml Output Total 4900 ml 4050 ml 9850 ml Balance -4657 ml -3418 ml -8190 ml Intake Oral 400 ml 1120 ml IV Total 243 ml 232 ml 540 ml Output Urine Total 4900 ml 4050 ml 9850 ml # Bowel Movements 0 General appearance: in minimal respiratory distress, frail, pleasant, cooperative HEET: Normocephalic atraumatic, no scleral icterus, tongue midline, mucous membranes moist Neck: supple Cardiovascular: RRR, distant S1 and S2, no murmurs/ rubs/gallops, PMI laterally displaced, JVP 12cm H20, 2+ peripheral edema b/l Respiratory: Fair aeration, able to speak in 8-9 words at a time, coarse b/l Abdomen: Soft, nontender, obese, + bowel sounds Neuro: Alert, no facial droop, tongue midline, no gross motor deficits Psych: anxious Skin: ecchymosis on both forearms Lab and Diagnostics Result Diagram: 11/02/16 0430 11/02/16 0430 X-Rays, CTs and MRIs Echo 10/29/2016: The left ventricle is severely dilated. The ejection fraction is estimated to be 10-15%. Compared to the prior exam, left ventricular function is slightly decreased. The right ventricle is normal size. Right ventricular systolic function is moderately reduced. There is a pacemaker lead in the right ventricle. There is moderate mitral regurgitation. Compared to the prior echo study, there has been an increase in the severity of mitral regurgitation. There is severe tricuspid regurgitation. Compared to the prior echo exam, there has been an increase in TR severity. The right ventricular systolic pressure is estimated at 43 mmHg assuming a right atrial pressure of 15 mm Hg. Compared to the prior echo exam, there has been an increase in the severity of pulmonary hypertension. Assessment & Plan Assessment 71 yo M h/o HFrEF, CAD s/p GERARD to distal LAD 11/2015 transferred from [facility] with heart failure and troponin elevation # HFrEF (acute on chronic systolic heart failure): probably from non-ischemic cardiomyopathy but it could also be from diffuse CAD. s/p AICD 2015. His LVEF is per 15% based on echo 10/29/2016. RHC 10/31/2016 showed severely elevated right and left sided filling pressures with low cardiac output, suggesting ACC stage D heart failure. He continues to have conversation dyspnea, suggesting NYHA class IV. With IV dobutamine gtt and IV diuresis, patient is having good urine output and is improving slowly. I spent significant time regimen the patient and about his condition and answered their questions. Recommendations as below: - Continue dobutamine gtt at 3mcg/kg/min - Continue furosemide IV 20mg q4hrs and titrate to be goal negative 3L - Start spironolactone 25mg daily # CAD s/p NSTEMI treated with GERARD to distal LAD 12/12/2015: Patient has not had chest pain prior to admission or since admission. His troponins are elevated but I suspect these are from heart failure. We will continue medical management for now and consider coronary angiography once creatinine is baseline. - Continue aspirin 81mg daily - Continue clopidogrel 75mg daily - Continue atorvastatin 10mg qhs - No need for heparin gtt # VF and VT: treated with AICD shock 07/2016. Patient continues to have nonsustained VT on telemetry. - Continue to monitor. - If VT becomes more frequent, then he can be considered for amiodarone # Atrial fibrillation: in sinus since admission. - s/p dofetilide that was stopped with start of IV dobutamine # PAD: has diffuse plaque on ultrasound at [place]. No new symptoms. Plan: - Management as CAD # Severe COPD: continue oxygen # VELIA: patient has congenital solitary right kidney. VELIA was due to cardiorenal syndrome (diuresis without inotropic support) and it has resolved with inotropic support and diuresis. Problems: Pain Evaluation: Adequate Pain Control VTE Prophylaxis: Other (Heparin gtt) VTE Mechanical Devices: Intermittant Pneumatic CD Resuscitation Status: CPR: Attempt Resuscitation Jazmín Jones MD Nov 02, 2016 12:04
--- NOTE | 2016-11-02 14:00 | NUR ---
Tele/ VTach P: Tele Sinus arrhythmia low 100's at rest and up to 130's with activity. line service technician reported 9 beats of VTach @ 1310. I: Pt asymptomatic. notified. E: patient continues to be closely monitored via telemetry and frequent rounding. Pt A&O using call light for needs.
[2016-11-02 14:57] LABS: Magnesium 1.6 mg/dL (1.6-2.6)
--- NOTE | 2016-11-02 16:29 | PCM.PNMED ---
Subjective Date of Service Nov 02, 2016 Subjective Mr. Brock is a 71-year-old male. Past medical history of systolic heart failure, CAD status post GERARD to distal LAD who is transferred from [place] for direct admit secondary to heart failure exacerbation and troponin elevation. Overnight: To need to have PVCs. Urine output was approximately 4 L. No significant events reported. Exam Vital Signs Vital Sign - Last Date Time Temp Pulse Resp B/P Pulse Ox O2 Delivery O2 Flow Rate FiO2 11/02/16 12:57 122 22 95 Nasal Cannula 1.50 11/02/16 12:01 36.6 107/71 Intake and Output 11/01/16 11/01/16 11/02/16 Cumulative From/Thru 15:00 23:00 07:00 10/30/16 18:00 - 11/02/16 06:20 Intake Total 243 ml 632 ml 1660 ml Output Total 4900 ml 4050 ml 9850 ml Balance -4657 ml -3418 ml -8190 ml Intake Oral 400 ml 1120 ml IV Total 243 ml 232 ml 540 ml Output Urine Total 4900 ml 4050 ml 9850 ml # Bowel Movements 0 Exam General: Chronically ill-appearing, well-developed, well-nourished, appropriately interactive. Sitting at bedside in no apparent distress. HEENT: Normocephalic, atraumatic. External ears without defect. Neck: No jugular venous distention Cardiovascular: Distant heart sounds. Regular rate and rhythm Pulmonary: Wheezing bilaterally. Normal respiratory effort with no use of accessory muscles. Abdomen:Soft, nontender, nondistended. Extremities: Bilateral lower extremity edema with pitting up to sacrum. Skin: Lower extremity with chronic venostasis changes, erythema. Clean dry dressing on lower extremities bilaterally, intact and non-weeping Neurological: Cranial nerves grossly intact. Psychiatric: Normal mood and affect. Alert and oriented to person, place, and time. IVs and Medications Medications Reviewed: Medications were reviewed in detail Lab and Diagnostics Result Diagram: 11/02/16 0430 11/02/16 1400 X-Rays, CTs and MRIs US RENAL SONOGRAM IMPRESSION: Simple right renal cysts. Left kidney not sonographically visualized and reportedly absent. Incidentally noted right pleural fluid Dictated by: Shaan Nogueira M.D. on 11/01/2016 at 17:33 Cardiac Echo Impressions Echocardiogram 10/29/2016 The left ventricle is severely dilated. The EF is estimated to be 10-15%. Compared to prior exam, left ventricular function is slightly decreased. The right ventricle is normal size. Right ventricular systolic is moderately reduced. There is a pacemaker lead in the right ventricle. There is moderate mitral regurgitation. Compared to prior echo study, there has been an increase in the severity of mitral regurgitation. There is severe tricuspid regurgitation. Compared to prior echo exam, there has been an increase in TR severity. The RVSP is estimated at 43mmHg assuming a right atrial pressure of 15mm Hg. Compared to prior echo exam, there has been an increase in the severity of pulmonary hypertension. Dr. Santos Bernard 10/29/2016 05:31 Additional Diagnostics Date: 10/29/2016 PROCEDURE: PVE Unilateral Right IMPRESSION: No deep venous thrombosis in the right lower extremity. Hung Aden MD on 10/29/2016 ----- Date 10/27/2016 PROCEDURE: ARTERIAL LOW.EXTREM.BILATERAL IMPRESSION: Scattered bilateral lower extremity atheromatous plaque as above, without definite evidence of focal stenosis. Left dorsalis pedis artery is not evaluated secondary to soft tissue changes. Shaan Nogueira MD on 10/28/2016 Assessment & Plan Patient is a 70-year-old male with CAD s/p PCI (GERARD to distal LAD), CHF s/p AICD , dyslipidemia, COPD, solitary congenital kidney and pulmonary hypertension presenting as a transfer from [facility] and admitted for worsening systolic heart failure and lower extremity edema. Hospital day #3. 1. HFrEF with dilated cardiomyopathy. Present on admission. Active -Decrease ejection fraction on recent echo (EF 15-20% to 10-15%) -Likely secondary to ischemia -Right heart catheterization with findings of elevated pressures -Stage D heart failure with poor prognosis per Cardiology. Options were inotropic driven diuretic therapy with the hope that patient will be able to tolerate standard heart failure medications once he is euvolemic or hospice. Patient and family opted for inoptrope. -Continue dobutamine at 3mcg/kg/min -Continue furosemide IV 20 mg every 4 hours titration per cardiology -Start spironolactone 25 mg daily -Recommendations per cardiology appreciated 2. Elevated troponin, acute. Present on admission. Active -Most likely secondary to heart failure #1 -Heparin drip DC'd per cardiology -Cardiology following. Recommendations per cardiology appreciated 3. Coronary artery disease status post STEMI. Present on admission. Stable - Continue aspirin 81 mg daily - Continue clopidogrel 75 mg daily - Continue atorvastatin 10 mg daily at bedtime - Per cardiology no need for heparin 4. Cardiac arrhythmias. Present on admission. Ongoing - Patient has history of both ventricular fibrillation and ventricular tachycardia requiring AICD shock July 2016. - Patient continues to have nonsustained ventricular tachycardia telemetry - Consider addition of amiodarone if ventricular tachycardia increases in frequency 5. Bilateral lower extremity edema. Present on admission. Active -Likely secondary to worsening heart failure -Ruptured blisters and ulcers present - Wound Care consult 6. Acute kidney injury. Present on admission. Improving -Note that patient has solitary congenital kidney -Holding lisinopril -Improved. Creatinine normalized -Nephrology consultation - Allopurinol 100 mg by mouth daily 7. Left inguinal hernia, chronic. Present on admission. Active -Patient reports increased pain with onset of swelling -Consider ultrasound if pain persists 8. COPD, chronic. Present on admission. Currently stable -DuoNeb QIDWA -Albuterol PRN 9. Type 2 diabetes mellitus, chronic. Present on admission. Stable -Bedside blood glucose checks -Hold home glyburide -Low dose correctional lispro -HbA1c 8.5 10. Dyslipidemia, chronic. Present on admission. Stable -Statin as in #3 -Lipid panel shows cholesterol is well controlled 11. Anxiety, chronic. Present on admission. Presumed stable -Lorazepam 1mg TID and before bed PRN Disposition: Pending hospital course; anticipate discharge home after diuresis and euvolemic Pain Evaluation: Adequate Pain Control VTE Prophylaxis: Other (Heparin gtt) VTE Mechanical Devices: Intermittant Pneumatic CD Resuscitation Status: CPR: Attempt Resuscitation Attending Statement The patient was seen and examined together with Dr. Andersen on 11/02/2016 and I agree with the history, exam and plan as outlined in the note above. . DAMON ANDERSEN DO Nov 02, 2016 16:29 Frank Power MD Nov 02, 2016 17:45
[2016-11-02] MEDS: Furosemide 10 mg/mL 2 mL Inj IVPUSH SCH ×2 (16:55→20:24)
[2016-11-02] MEDS ORDERED: Furosemide 10 mg/mL 4 mL Inj IVPUSH ONE (19:25)
[2016-11-03] VITALS (13 sets, daily range): BP systolic 104–126; BP diastolic 42–86; PULSE 75–122; RESP 15–26; O2SAT 96–99
[2016-11-03 02:37] LABS: Magnesium 1.5 mg/dL (1.6-2.6)
[2016-11-03] MEDS: Furosemide 10 mg/mL 2 mL Inj IVPUSH SCH ×6 (02:48→22:06)
[2016-11-03] MEDS ORDERED: Mag Sulf 4 Gm/100 mL IV Premix (Mag < 1.6 & Creat < 2) IV ONE (02:50)
[2016-11-03] MEDS: HYDROcodone-APAP 5-325 mg Tablet PO PRN ×3 (03:07→20:09)
[2016-11-03 06:14] LABS: BASOPHILS % (AUTO) 0.3 % (0-3); EOSINOPHILS % (AUTO) 3.9 % (0-5); MONOCYTES % (AUTO) 12.4 % (4-12); Mean Corpuscular Hemoglobin 29.1 pg (27.0-35.0); Mean Corpuscular Volume 81.9 fL (81-100); NEUTROPHILS % (AUTO) 65.8 % (40-74); Platelet Count 148 bil/L (150-400)
[2016-11-03 06:25] LABS: Magnesium 2.5 mg/dL (1.6-2.6)
[2016-11-03] MEDS: DOBUTamine 500 mg/250 D5W 500,000 MCG in IV Premix 1 EACH IV SCH (06:41)
[2016-11-03] MEDS: Insulin LISPRO 300 Unit/3 mL Inj SUBQ SCH ×4 (07:55→20:07)
[2016-11-03] MEDS: Albuterol-Ipratropium 3 mL Inhalation Solution NEB SCH ×4 (08:11→21:42)
--- NOTE | 2016-11-03 11:18 | PCM.PNCARD ---
Subjective Date of service Nov 03, 2016 Chief Complaint heart failure, troponin elevation History of Present Illness 71 yo M h/o HFrEF, CAD s/p GERARD to distal LAD 11/2015 transferred from [facility] with heart failure and troponin elevation. Patient states that his baseline was a year ago when he could walk a few miles with mild dyspnea due to COPD. In November 2015, patient was diagnosed with systolic heart failure in the setting of myocardial infarction. He underwent urgent GERARD placement to his distal LAD. Unfortunately, his LVEF did not improve significantly despite revascularization and medical management. He got an AICD placed subsequently. In July 2016, he had VF arrest and his AICD properly shocked him out of it. Since his myocardial infarction in 2015, patient has been unable to walk for several miles as before. In July 2016, patient started noticing lower extremity edema. He went to urgent care and was placed on diuretics. He then went to [place] and was able to walk reasonably well over there. In August the grocery edema got even better with therapies. However, the lower extremity edema got worse last month. His dyspnea on exertion has also progressed significantly to the point that he is unable to do his ADLs now. Patient denies chest pain, palpitations, lightheadedness, or syncope. He also denies fevers, chills, nausea, or vomiting. Subjective: Patient continues to have good urine output with IV dobutamine gtt and IV furosemide. He feels better from breathing and edema standpoint. PROBLEM LIST: # HFrEF (systolic heart failure): probably from non-ischemic cardiomyopathy but it could also be from diffuse CAD. 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 Exam Vital Signs Vital Sign - Last Date Time Temp Pulse Resp B/P Pulse Ox O2 Delivery O2 Flow Rate FiO2 11/03/16 09:04 117 11/03/16 07:56 36.0 15 111/42 98 Nasal Cannula 2.00 Intake and Output 11/02/16 11/02/16 11/03/16 Cumulative From/Thru 15:00 23:00 07:00 10/30/16 18:00 - 11/03/16 05:42 Intake Total 1007 ml 600 ml 3267 ml Output Total 2200 ml 3200 ml 56259 ml Balance -1193 ml -2600 ml -35672 ml Intake Oral 800 ml 300 ml 2220 ml IV Total 207 ml 300 ml 1047 ml Output Urine Total 2200 ml 3200 ml 21513 ml # Bowel Movements 0 0 0 General appearance: NAD, frail, pleasant, cooperative HEET: Normocephalic atraumatic, no scleral icterus, tongue midline, mucous membranes moist Neck: supple Cardiovascular: RRR, distant S1 and S2, no murmurs/ rubs/gallops, PMI laterally displaced, JVP 11cm H20, 2+ peripheral edema b/l Respiratory: Fair aeration, speaking in complete sentences (for the first time since hospitalization), coarse b/l Abdomen: Soft, nontender, obese, + bowel sounds Neuro: Alert, no facial droop, tongue midline, no gross motor deficits Psych: anxious Skin: ecchymosis on both forearms Lab and Diagnostics Result Diagram: 11/03/16 0534 11/03/16 0534 X-Rays, CTs and MRIs Echo 10/29/2016: The left ventricle is severely dilated. The ejection fraction is estimated to be 10-15%. Compared to the prior exam, left ventricular function is slightly decreased. The right ventricle is normal size. Right ventricular systolic function is moderately reduced. There is a pacemaker lead in the right ventricle. There is moderate mitral regurgitation. Compared to the prior echo study, there has been an increase in the severity of mitral regurgitation. There is severe tricuspid regurgitation. Compared to the prior echo exam, there has been an increase in TR severity. The right ventricular systolic pressure is estimated at 43 mmHg assuming a right atrial pressure of 15 mm Hg. Compared to the prior echo exam, there has been an increase in the severity of pulmonary hypertension. Assessment & Plan Assessment 71 yo M h/o HFrEF, CAD s/p GERARD to distal LAD 11/2015 transferred from [facility] with heart failure and troponin elevation # HFrEF (acute on chronic systolic heart failure): probably from non-ischemic cardiomyopathy but it could also be from diffuse CAD. s/p AICD 2015. His LVEF is per 15% based on echo 10/29/2016. RHC 10/31/2016 showed severely elevated right and left sided filling pressures with low cardiac output, suggesting ACC stage D heart failure. With IV dobutamine gtt and IV diuresis, patient is having good urine output. Patient's dyspnea and anasarca have improved significantly with diuresis and he is now NYHA class IIIb. I spent significant time regimen the patient and about his condition and answered their questions. Recommendations as below: - Continue dobutamine gtt at 3mcg/kg/min until euvolemia. Patient may need repeat RHC to determine euvolemia - Increase furosemide IV from 20mg q4hrs to 30mg q4hrs and titrate to be goal negative 3L. - Continue spironolactone 25mg daily - Start lisinopril 5mg qhs - Start digoxin 0.25mg today, repeat 0.25mg tomorrow and then 0.125mg daily # CAD s/p NSTEMI treated with GERARD to distal LAD 12/12/2015: Patient has not had chest pain prior to admission or since admission. His troponins are elevated but I suspect these are from heart failure. We will continue medical management for now and consider coronary angiography once creatinine is baseline. - Continue aspirin 81mg daily - Continue clopidogrel 75mg daily - Continue atorvastatin 10mg qhs - No need for heparin gtt # VF and VT: treated with AICD shock 07/2016. Patient continues to have nonsustained VT on telemetry. - Continue to monitor. - If VT becomes more frequent, then he can be considered for amiodarone # Atrial fibrillation: in sinus since admission. - s/p dofetilide that was stopped with start of IV dobutamine # PAD: has diffuse plaque on ultrasound at [place]. No new symptoms. Plan: - Management as CAD # Severe COPD: continue oxygen # VELIA: patient has congenital solitary right kidney. VELIA was due to cardiorenal syndrome (diuresis without inotropic support) and it has resolved with inotropic support and diuresis. Problems: Pain Evaluation: Adequate Pain Control VTE Prophylaxis: Other (Heparin gtt) VTE Mechanical Devices: Intermittant Pneumatic CD Resuscitation Status: CPR: Attempt Resuscitation Jazmín Jones MD Nov 03, 2016 11:18
--- NOTE | 2016-11-03 12:11 | PCM.PNNEPH ---
Subjective Date of Service Nov 03, 2016 Subjective The patient continues to have a good response to the aggressive IV diuresis. His breathing considerably and resting much more comfortably. In the last 36 hours she is put out over 9 L of urine. His blood pressures have averaged between 90 and 120 systolic. Last 24-hour she has had 1639 in and 6250 out with an additional 3200 MORNING. Sodium is 133, potassium of 3.9, chloride 89, bicarbonate 25, BUN and creatinine are 25 and 0.85 respectively. Exam Vital Signs Vital Sign - Last Date Time Temp Pulse Resp B/P Pulse Ox O2 Delivery O2 Flow Rate FiO2 11/03/16 09:04 117 11/03/16 08:10 21 97 Nasal Cannula 2.00 11/03/16 07:56 36.0 111/42 Intake and Output 11/02/16 11/02/16 11/03/16 Cumulative From/Thru 15:00 23:00 07:00 10/30/16 18:00 - 11/03/16 05:42 Intake Total 1007 ml 600 ml 3267 ml Output Total 2200 ml 3200 ml 14737 ml Balance -1193 ml -2600 ml -75485 ml Intake Oral 800 ml 300 ml 2220 ml IV Total 207 ml 300 ml 1047 ml Output Urine Total 2200 ml 3200 ml 54321 ml # Bowel Movements 0 0 0 Exam Neck is supple without adenopathy, thyromegaly, or jugular venous distention. Lungs were clear to auscultation. Heart is irregularly irregular. Abdomen is distended without any tenderness or rebound guarding masses or hepatosplenomegaly. Extremities showed considerable less edema. Lab and Diagnostics Result Diagram: 11/03/16 0534 11/03/16 0534 X-Rays, CTs and MRIs US RENAL SONOGRAM IMPRESSION: Simple right renal cysts. Left kidney not sonographically visualized and reportedly absent. Incidentally noted right pleural fluid Dictated by: Shaan Nogueira M.D. on 11/01/2016 at 17:33 Cardiac Echo Impressions Echocardiogram 10/29/2016 The left ventricle is severely dilated. The EF is estimated to be 10-15%. Compared to prior exam, left ventricular function is slightly decreased. The right ventricle is normal size. Right ventricular systolic is moderately reduced. There is a pacemaker lead in the right ventricle. There is moderate mitral regurgitation. Compared to prior echo study, there has been an increase in the severity of mitral regurgitation. There is severe tricuspid regurgitation. Compared to prior echo exam, there has been an increase in TR severity. The RVSP is estimated at 43mmHg assuming a right atrial pressure of 15mm Hg. Compared to prior echo exam, there has been an increase in the severity of pulmonary hypertension. Dr. Santos Bernard 10/29/2016 05:31 Additional Diagnostics Date: 10/29/2016 PROCEDURE: PVE Unilateral Right IMPRESSION: No deep venous thrombosis in the right lower extremity. Hung Aden MD on 10/29/2016 ----- Date 10/27/2016 PROCEDURE: ARTERIAL LOW.EXTREM.BILATERAL IMPRESSION: Scattered bilateral lower extremity atheromatous plaque as above, without definite evidence of focal stenosis. Left dorsalis pedis artery is not evaluated secondary to soft tissue changes. 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 I will avoid a carbonic anhydrase inhibitor such as Acetasol might due to the recent risk of profound electrolyte abnormalities. As his renal issues have resolved we will sign off at this point. Please notify us if you have any questions or any change in the patient's condition. Toni Earl DO Nov 03, 2016 12:11
[2016-11-03 12:18] LABS: Magnesium 1.9 mg/dL (1.6-2.6)
--- NOTE | 2016-11-03 13:00 | NUR ---
PANKAJ signed. MARTHA Walls
--- NOTE | 2016-11-03 14:45 | NUR ---
Social Work-continued d/c planning: Data:EMR Reviewed. Pt is on day 4 of hospitalization for CHF per H&P. Pt is not medically stable at this time, anticipate several more days. SW followed up with pt and family at bedside, SW role explained. PT has seen pt and cleared pt for home with outpt pt vs cardiac rehab. Pt ambulated over 400ft. Pt and family in agreement with discharge home when medically stable. Pt's family to provide transport home when medically stable. SW will continue to follow. Assessment:Pt who is independent at baseline. Plan:Pt to discharge home when medically stable via POV. PT has seen pt and cleared pt for home with outpt pt vs cardiac rehab. No anticipated discharge needs. SW will continue to follow if needs arise. MARTHA Walls
--- NOTE | 2016-11-03 16:04 | NUR ---
Telemetry Update: VTACH Patient has been Sinus Rhythm 100-120s with an IVCD, trigem PACs, and PVC pairs. Patient has had several runs of VTACH throughout the day: 06:46 - 15bts 10:58 - 6bt 13:30 - 13bt, 300bpm 16:01 - 7bt GRZEGORZ Romo aware.
[2016-11-03 18:50] LABS: Magnesium 1.8 mg/dL (1.6-2.6)
--- NOTE | 2016-11-03 20:02 | PCM.PNMED ---
Subjective Date of Service Nov 03, 2016 Subjective Patient is a 71-year-old male with systolic heart failure, CAD status post GERARD to distal LAD who was transferred from [facility] for direct admit secondary to heart failure exacerbation and troponin elevation. Overnight the patient continued to have PVCs and small runs of asymptomatic v tach. Urine output over the past 24 hours is approximately 2.4 L. Patient reports being able to move his legs better now that they are not as edematous. He is otherwise without complaints - he denies chest pain, shortness of breath, nausea, emesis, dizziness, lightheadedness. Exam Vital Signs Vital Sign - Last Date Time Temp Pulse Resp B/P Pulse Ox O2 Delivery O2 Flow Rate FiO2 11/03/16 16:30 116 18 98 Nasal Cannula 2.00 11/03/16 16:00 36.5 106/71 Intake and Output 11/02/16 11/02/16 11/03/16 Cumulative From/Thru 15:00 23:00 07:00 10/30/16 18:00 - 11/03/16 05:42 Intake Total 1007 ml 600 ml 3267 ml Output Total 2200 ml 3200 ml 97524 ml Balance -1193 ml -2600 ml -84759 ml Intake Oral 800 ml 300 ml 2220 ml IV Total 207 ml 300 ml 1047 ml Output Urine Total 2200 ml 3200 ml 51136 ml # Bowel Movements 0 0 0 Exam General: Ill-appearing gentleman, No acute distress, well-developed, well- nourished, appropriately interactive HEENT: Normocephalic, atraumatic. External ears without defect. Anicteric sclerae, moist conjunctivae, and no lid lag. Dry oral mucosa. Neck: Supple Cardiovascular: Distant heart sounds. Regular rate and rhythm with no murmurs, rubs, or gallops appreciated Pulmonary: Intermittent mild wheezes.Normal respiratory effort with no use of accessory muscles. Abdomen: Bowel tones present. Soft, nontender, nondistended. Extremities: Bilateral lower extremity edema with pitting up to sacrum. Skin: Lower extremity with chronic venostasis changes, erythema. Clean dry dressing on lower extremities bilaterally Neurological: Cranial nerves grossly intact. Psychiatric: Normal mood and affect. Alert and oriented to person, place, and time IVs and Medications Medications Reviewed: Medications were reviewed in detail Lab and Diagnostics Result Diagram: 11/03/16 0534 11/03/16 1817 X-Rays, CTs and MRIs US RENAL SONOGRAM IMPRESSION: Simple right renal cysts. Left kidney not sonographically visualized and reportedly absent. Incidentally noted right pleural fluid Dictated by: Shaan Nogueira M.D. on 11/01/2016 at 17:33 Cardiac Echo Impressions Echocardiogram 10/29/2016 The left ventricle is severely dilated. The EF is estimated to be 10-15%. Compared to prior exam, left ventricular function is slightly decreased. The right ventricle is normal size. Right ventricular systolic is moderately reduced. There is a pacemaker lead in the right ventricle. There is moderate mitral regurgitation. Compared to prior echo study, there has been an increase in the severity of mitral regurgitation. There is severe tricuspid regurgitation. Compared to prior echo exam, there has been an increase in TR severity. The RVSP is estimated at 43mmHg assuming a right atrial pressure of 15mm Hg. Compared to prior echo exam, there has been an increase in the severity of pulmonary hypertension. Dr. Santos Bernard 10/29/2016 05:31 Additional Diagnostics Date: 10/29/2016 PROCEDURE: PVE Unilateral Right IMPRESSION: No deep venous thrombosis in the right lower extremity. Hung Aden MD on 10/29/2016 ----- Date 10/27/2016 PROCEDURE: ARTERIAL LOW.EXTREM.BILATERAL IMPRESSION: Scattered bilateral lower extremity atheromatous plaque as above, without definite evidence of focal stenosis. Left dorsalis pedis artery is not evaluated secondary to soft tissue changes. Shaan Nogueira MD on 10/28/2016 Assessment & Plan Patient is a 70-year-old male with CAD s/p PCI (GERARD to distal LAD), CHF s/p AICD , dyslipidemia, COPD, solitary congenital kidney and pulmonary hypertension presenting as a transfer from [facility] and admitted for worsening systolic heart failure and lower extremity edema. Hospital day #4. 1. HFrEF with dilated cardiomyopathy. Present on admission. Active -Decrease ejection fraction on recent echo (EF 15-20% to 10-15%) -Likely secondary to ischemia -Right heart catheterization with findings of elevated pressures -Stage D heart failure with poor prognosis per Cardiology. Options were inotropic driven diuretic therapy with the hope that patient will be able to tolerate standard heart failure medications once he is euvolemic or hospice. Patient and family opted for inoptrope. -Continue dobutamine at 3mcg/kg/min -Increase furosemide IV from 20mg q4hrs to 30mg q4hrs and titrate to be goal negative 3L. -Continue spironolactone 25mg daily -Start lisinopril 5mg qhs -Start digoxin 0.25mg today, repeat 0.25mg tomorrow and then 0.125mg daily -Recommendations per cardiology appreciated 2. Elevated troponin, acute. Present on admission. Active -Most likely secondary to heart failure #1 -Heparin drip DC'd per cardiology -Cardiology following. Recommendations per cardiology appreciated 3. Coronary artery disease status post STEMI. Present on admission. Stable - Continue aspirin 81 mg daily - Continue clopidogrel 75 mg daily - Continue atorvastatin 10 mg daily at bedtime - Per cardiology no need for heparin 4. Cardiac arrhythmias. Present on admission. Ongoing - Patient has history of both ventricular fibrillation and ventricular tachycardia requiring AICD shock July 2016. - Patient continues to have nonsustained ventricular tachycardia telemetry - Consider addition of amiodarone if ventricular tachycardia increases in frequency 5. Bilateral lower extremity edema. Present on admission. Active -Likely secondary to worsening heart failure -Ruptured blisters and ulcers present -Wound Care following 6. Acute kidney injury. Present on admission. Improved -Note that patient has solitary congenital kidney -Improved. Creatinine normalized -Nephrology following. Recommendations per nephrology appreciated -Allopurinol 100 mg by mouth daily 7. Left inguinal hernia, chronic. Present on admission. Active -Patient reports increased pain with onset of swelling -Consider ultrasound if pain persists 8. COPD, chronic. Present on admission. Currently stable -DuoNeb QIDWA -Albuterol PRN 9. Type 2 diabetes mellitus, chronic. Present on admission. Stable -Bedside blood glucose checks -Hold home glyburide -Low dose correctional lispro -HbA1c 8.5 10. Dyslipidemia, chronic. Present on admission. Stable -Statin as in #3 -Lipid panel shows cholesterol is well controlled 11. Anxiety, chronic. Present on admission. Presumed stable -Lorazepam 1mg TID and before bed PRN Disposition: Pending hospital course; anticipate discharge home after diuresis and euvolemic Pain Evaluation: Adequate Pain Control VTE Prophylaxis: Other (Heparin gtt) VTE Mechanical Devices: Intermittant Pneumatic CD Resuscitation Status: CPR: Attempt Resuscitation Attending Statement The patient was seen and examined together with Dr. Eugene on 11/03/2069 and I agree with the history, exam and plan as outlined in the note above. . Tevin Eugene DO Nov 03, 2016 20:02 Frank Power MD Nov 04, 2016 10:46
[2016-11-03] MEDS ORDERED: Magnesium Sulf 4 Gm/100 mL H2O 4 GM in IV Premix 1 EACH IV ONE (21:05)
[2016-11-04] VITALS (11 sets, daily range): BP systolic 91–122; BP diastolic 57–76; PULSE 102–123; RESP 16–24; O2SAT 93–98
[2016-11-04] MEDS: LORazepam 1 mg Tablet PO PRN ×2 (00:20→23:47)
[2016-11-04] MEDS: HYDROcodone-APAP 5-325 mg Tablet PO PRN ×5 (00:21→23:50)
[2016-11-04] MEDS: Furosemide 10 mg/mL 2 mL Inj IVPUSH SCH ×6 (03:07→20:44)
[2016-11-04 06:21] LABS: Magnesium 2.2 mg/dL (1.6-2.6)
[2016-11-04] MEDS: DOBUTamine 500 mg/250 D5W 500,000 MCG in IV Premix 1 EACH IV SCH (06:24)
--- NOTE | 2016-11-04 06:47 | NUR ---
oxygenation Pt tolerated 5-8 mins off bipap on RA to brush teeth, wash face and take meds. Pt tolerated this well. Sats remained in low 90's. While asleep on bipap pt sating 99-100%. FiO2 decreased to 25%, sats remain in high 90's. Addendum: 11/04/16 at 0650 by BECCA HUFFMAN RN Disregard above note, charted on wrong patient.
[2016-11-04] MEDS: Albuterol-Ipratropium 3 mL Inhalation Solution NEB SCH ×4 (07:26→21:41)
[2016-11-04] MEDS: Insulin LISPRO 300 Unit/3 mL Inj SUBQ SCH ×4 (08:47→20:44)
[2016-11-04] MEDS: Polyethylene Glycol (PEG) 17 Gm Powder PO PRN (08:47)
--- NOTE | 2016-11-04 11:29 | PROG NOTE ---
[address] [address] PROGRESS NOTE PATIENT: HARRIET KOHLI : 1945 MR#: [id number] ADMIT: 10/30/2016 JOB ID: [id number] DATE: 11/04/2016 SUBJECTIVE: The patient is a 71-year-old gentleman admitted with a history of nonischemic cardiomyopathy, with anasarca and low cardiac output, without obvious contributing cause. He has responded well over the past four days with intravenous dobutamine at 3 mcg/kg per minute, and intravenous Lasix, and so for has lost 23 pounds of edema fluid. He is currently resting comfortably in bed. His breathing is much improved and his lower extremities show near resolution of his lower extremity edema. Wound Care has been attending to ulcerations and blisters on both lower extremities and both feet, with areas of prominent erythema involving the dorsum of both feet and toes. He is getting pain medication for pain in his feet as well as shoulders, but has no cardiac related pain or symptoms, and his breathing is much improved, as mentioned. PHYSICAL EXAMINATION: On exam, his blood pressure has been generally ranging between 100-120 systolic. He has been tachycardic with heart rates in the 100-120 range over the last 3-4 days. He is in a sinus tachycardia with occasional PACs and occasional runs of relatively slow monomorphic ventricular tachycardia. His exam otherwise shows diffuse ecchymoses. He is somewhat thomas from his trip months ago to [place]. His jugular venous pressure appears to be only mild to moderately elevated. Lung royal are fairly clear. Cardiac auscultation is notable for regular tachycardia with occasional irregularity and a soft apical ventricular gallop. His abdomen is not significantly distended. There is no obvious hepatic percussion tenderness. Distal extremities are as described above. LABORATORY: Shows mild hyponatremia. His creatinine is normal at 0.74. Blood sugars modestly elevated. Transaminases yesterday were elevated, with an AST of 150 and an ALT of 274, with a bilirubin of 1.3, clearly related to hepatic congestion. EKG shows some mild intraventricular conduction delay with a left axis deviation. Prominent atrial enlargement. Echocardiograms were reviewed and demonstrates a markedly dilated left ventricle with severe diffuse left ventricular hypokinesis with an ejection fraction of 10-15%, and I suspect evidence of moderately severe mitral and tricuspid regurgitation, which were somewhat incompletely evaluated. DISCUSSION: The patient has responded well to medical therapy and is close to his baseline weight at this point in time. I am going to back off on his diuretics some to 30 mg q.8. h., instead of q.4 h., and I am also going to gradually reduce his dobutamine and will cut it back to 2 mcg/kg per minute for now, and maybe later this evening, we can cut back to 1 mcg/kg per minute. I suspect within the next 24-48 hours we will be able to taper off the dobutamine and will see how he does clinically.
--- NOTE | 2016-11-04 15:17 | NUR ---
PT, tele, bm, wound care PT worked with patient, positive ortho's during assessment; asymptomatic; see PT note; tolerated ambulating in room around bed several times. Tele sinus tach with frequent pvc's and short runs of v-tach; asymptomatic. Denies cp or pressure. Pt. states he has not had bm in three days; passing flatus but constipated. PRN miralax and senna given this am; offered to ask MD for enema order; pt. refused stating if he doesn't have results today, he will try an enema tomorrow. Bilateral lower extremity wound dressings changed; mod weeping to right posterior calf brown and toe with tinged serous drainage; left top of foot with large intact blister; wound therapy called and left message with Ryan Eason to assess wounds. Pt. c/o 11/04 pain; requesting only half a vicodin for pain relief.
[2016-11-04] MEDS ORDERED: Lactulose 20 Gm/30 mL 30 mL Syrup PO ONE (15:30)
--- NOTE | 2016-11-04 20:24 | PCM.PNMED ---
Subjective Date of Service Nov 04, 2016 Subjective No overnight events. The patient reports he is feeling much better and is doing well without complaints. Patient denies chest pain, lightheadedness, dizziness, abdominal pain, nausea, emesis. Exam Vital Signs Vital Sign - Last Date Time Temp Pulse Resp B/P Pulse Ox O2 Delivery O2 Flow Rate FiO2 11/04/16 16:03 112 16 96 Nasal Cannula 1.50 11/04/16 16:00 36.4 122/62 Intake and Output 11/03/16 11/03/16 11/04/16 Cumulative From/Thru 14:59 22:59 06:59 10/30/16 18:00 - 11/04/16 06:43 Intake Total 1123 ml 1120 ml 5510 ml Output Total 3950 ml 2200 ml 08367 ml Balance -2827 ml -1080 ml -16858 ml Intake Oral 890 ml 920 ml 4030 ml IV Total 233 ml 200 ml 1480 ml Output Urine Total 3950 ml 2200 ml 55211 ml # Bowel Movements 0 0 Exam General: Chronically ill-appearing, No acute distress, well-developed, well- nourished, appropriately interactive HEENT: Normocephalic, atraumatic. External ears without defect. Anicteric sclerae, moist conjunctivae, and no lid lag. Dry oral mucosa. Neck: Supple Cardiovascular: Distant heart sounds. Regular rate and rhythm with no murmurs, rubs, or gallops appreciated Pulmonary: Wheezing bilaterally. Decreased sound at bases. Normal respiratory effort with no use of accessory muscles. Abdomen: Bowel tones present. Soft, nontender, nondistended. Extremities: Bilateral lower extremity edema with pitting up to sacrum. Skin: Lower extremity with chronic venostasis changes, erythema. Clean dry dressing to right lower extremity and toes, and clean dry dressing over left forefoot. Neurological: Cranial nerves grossly intact. Psychiatric: Normal mood and affect. Alert and oriented to person, place, and time. Lab and Diagnostics Result Diagram: 11/04/16 0551 11/04/16 0551 X-Rays, CTs and MRIs US RENAL SONOGRAM IMPRESSION: Simple right renal cysts. Left kidney not sonographically visualized and reportedly absent. Incidentally noted right pleural fluid Dictated by: Shaan Nogueira M.D. on 11/01/2016 at 17:33 Cardiac Echo Impressions Echocardiogram 10/29/2016 The left ventricle is severely dilated. The EF is estimated to be 10-15%. Compared to prior exam, left ventricular function is slightly decreased. The right ventricle is normal size. Right ventricular systolic is moderately reduced. There is a pacemaker lead in the right ventricle. There is moderate mitral regurgitation. Compared to prior echo study, there has been an increase in the severity of mitral regurgitation. There is severe tricuspid regurgitation. Compared to prior echo exam, there has been an increase in TR severity. The RVSP is estimated at 43mmHg assuming a right atrial pressure of 15mm Hg. Compared to prior echo exam, there has been an increase in the severity of pulmonary hypertension. Dr. Santos Bernard 10/29/2016 05:31 Additional Diagnostics PROCEDURE: PVE Unilateral Right IMPRESSION: No deep venous thrombosis in the right lower extremity. Hung Aden MD on 10/29/2016 PROCEDURE: ARTERIAL LOW.EXTREM.BILATERAL IMPRESSION: Scattered bilateral lower extremity atheromatous plaque as above, without definite evidence of focal stenosis. Left dorsalis pedis artery is not evaluated secondary to soft tissue changes. Shaan Nogueira MD on 10/28/2016 Assessment & Plan Patient is a 70-year-old male with CAD s/p PCI (GERARD to distal LAD), CHF s/p AICD , dyslipidemia, COPD, solitary congenital kidney and pulmonary hypertension presenting as a transfer from [facility] and admitted for worsening systolic heart failure and lower extremity edema. Hospital day #5. 1. HFrEF with dilated cardiomyopathy. Present on admission. Active -Decrease ejection fraction on recent echo (EF 15-20% to 10-15%) -Likely secondary to ischemia -Right heart catheterization with findings of elevated pressures -Stage D heart failure with poor prognosis per Cardiology. Options were inotropic driven diuretic therapy with the hope that patient will be able to tolerate standard heart failure medications once he is euvolemic or hospice. Patient and family opted for inoptrope. -Continue spironolactone 25mg daily -Start lisinopril 5mg qhs -Start digoxin 0.25mg today, repeat 0.25mg tomorrow and then 0.125mg daily -Per Dr. Linda, cardiology: the patient has responded well to medical therapy and is close to his baseline weight at this point in time. Decrease Lasix from 30 mg every 8 hours and gradually reduce dobutamine and will cut it back to 2 mcg/kg per minute with the plan to cut back to 1 mcg/kg per minute. Plan to taper off dobutamine within 24-48 hours 2. Elevated troponin, acute. Present on admission. Active -Most likely secondary to heart failure #1 -Heparin drip DC'd per cardiology -Cardiology following. Recommendations per cardiology appreciated 3. history of Coronary artery disease / STEMI s/p GERARD to LAD. Present on admission. Stable - Continue aspirin 81 mg daily - Continue clopidogrel 75 mg daily - Continue atorvastatin 10 mg daily at bedtime - Per cardiology no need for heparin 4. Cardiac arrhythmias. Present on admission. Ongoing - Patient has history of both ventricular fibrillation and ventricular tachycardia requiring AICD shock July 2016. - Patient continues to have nonsustained ventricular tachycardia telemetry - Consider addition of amiodarone if ventricular tachycardia increases in frequency 5. Bilateral lower extremity edema. Present on admission. Active -Likely secondary to worsening heart failure -Ruptured blisters and ulcers present -Wound Care following 6. Acute kidney injury. Present on admission. Improved -Note that patient has solitary congenital kidney -Improved. Creatinine normalized -Nephrology following. Recommendations per nephrology appreciated -Allopurinol 100 mg by mouth daily 7. Left inguinal hernia, chronic. Present on admission. Active -Patient reports increased pain with onset of swelling -Consider ultrasound if pain persists 8. COPD, chronic. Present on admission. Currently stable -DuoNeb QIDWA -Albuterol PRN 9. Type 2 diabetes mellitus, chronic. Present on admission. Stable -Bedside blood glucose checks -Hold home glyburide -Low dose correctional lispro -HbA1c 8.5 10. Dyslipidemia, chronic. Present on admission. Stable -Statin as in #3 -Lipid panel shows cholesterol is well controlled 11. Anxiety, chronic. Present on admission. Presumed stable -Lorazepam 1mg TID and before bed PRN Disposition: Pending hospital course; anticipate discharge home after diuresis and euvolemic in 2-3 days VTE Prophylaxis: Other (Heparin gtt) VTE Mechanical Devices: Intermittant Pneumatic CD Resuscitation Status: CPR: Attempt Resuscitation Attending Statement The patient was seen and examined together with Dr. Foss on 11/04/2016 and I agree with the history, exam and plan as outlined in the note above. Yana Foss DO Nov 04, 2016 20:24 Ernesto Cotto MD Nov 05, 2016 06:43
[2016-11-05] VITALS (13 sets, daily range): BP systolic 92–111; BP diastolic 44–67; PULSE 107–124; RESP 18–30; O2SAT 92–99
[2016-11-05] MEDS: Furosemide 10 mg/mL 2 mL Inj IVPUSH SCH ×2 (00:30→09:15)
[2016-11-05 05:14] LABS: BASOPHILS % (AUTO) 0.5 % (0-3); EOSINOPHILS % (AUTO) 4.6 % (0-5); MONOCYTES % (AUTO) 12.9 % (4-12); Mean Corpuscular Hemoglobin 28.9 pg (27.0-35.0); Mean Corpuscular Volume 82.9 fL (81-100); NEUTROPHILS % (AUTO) 59.3 % (40-74); Platelet Count 165 bil/L (150-400)
--- NOTE | 2016-11-05 05:50 | NUR ---
Telemetry HR approx. 110s while awake and relaxed this shift; decreases to 90s while asleep and increases to 120s-130s with activity. Pt had 1 run of 17-beat VT this shift at approx. 0150; asymptomatic; paged, no new orders placed. VSS this shift; pt able to rest. Ongoing concern for constipation - pt attempted to have bowel movement this AM; encouraged not to strain. Ongoing flatus and present bowel tones. SBA in room.
[2016-11-05] MEDS: LORazepam 1 mg Tablet PO PRN ×2 (09:13→23:40)
[2016-11-05] MEDS: HYDROcodone-APAP 5-325 mg Tablet PO PRN ×2 (09:14→23:40)
[2016-11-05] MEDS: Polyethylene Glycol (PEG) 17 Gm Powder PO PRN (09:21)
[2016-11-05] MEDS: Albuterol-Ipratropium 3 mL Inhalation Solution NEB SCH ×4 (09:25→21:35)
[2016-11-05] MEDS: Insulin LISPRO 300 Unit/3 mL Inj SUBQ SCH ×4 (10:04→21:01)
--- NOTE | 2016-11-05 12:32 | PROG NOTE ---
[address] [address] PROGRESS NOTE PATIENT: HARRIET KOHLI : 1945 MR#: [id number] ADMIT: 10/30/2016 JOB ID: [id number] DATE: 11/05/2016 PROGRESS NOTE: The patient is improved. 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 Bernard in our office three weeks ago. He is actually standing by the bedside complaining of some abdominal crampy pain with scant stool production with his bowel movement. Constipation is his predominant complaint today. His legs continued to show fairly significant erythema, but he is standing. I do not detect significant jugular venous distention with him standing. His lung royal are fairly clear to auscultation. Heart tones are regular but fairly rapid with a sinus tachycardia of about 115 to 120 beats per minute. The patient has no complaints of chest discomfort. In general, he states that he is feeling better with his predominant complaint again being his constipation. LABORATORY DATA: Today, notable for persistent hyponatremia which is improving some. His renal function is normal. Transaminase levels and bilirubin continue to be moderately elevated. IMPRESSION: The patient is improved. I am going to back off on his intravenous diuretics. Will stop those today and start him on torsemide tomorrow. I am going to go ahead and initiate a low-dose beta rosendo later this afternoon. Will stop his dobutamine infusion and re-initiate beta blockers which hopefully he will tolerate well. Once he is stable and back on appropriate cardiac medications, he can be discharged home to follow up with Dr. Bernard who at this point in time might want to consider referral to the [facility] for advanced heart failure therapies for further recommendations.
--- NOTE | 2016-11-05 13:34 | PCM.PNMED ---
Subjective Date of Service Nov 05, 2016 Subjective Patient is not feeling well due to constipation. He passes flatus but no bowel movement yet. Heart rate in 90's asleep and 120-130's with activities. Per telemetry, patient had one run of 17 beat VT, asymptomatic. Exam Vital Signs Vital Sign - Last Date Time Temp Pulse Resp B/P Pulse Ox O2 Delivery O2 Flow Rate FiO2 11/05/16 12:52 111 11/05/16 12:45 18 98 Nasal Cannula 2.00 11/05/16 11:57 37.1 11/05/16 09:01 110/57 Intake and Output 11/04/16 11/04/16 11/05/16 Cumulative From/Thru 14:59 22:59 06:59 10/30/16 18:00 - 11/05/16 06:22 Intake Total 1133 ml 160 ml 6803 ml Output Total 1550 ml 16007 ml Balance -417 ml 160 ml -49359 ml Intake Oral 920 ml 4950 ml IV Total 213 ml 160 ml 1853 ml Output Urine Total 1550 ml 64719 ml # Bowel Movements 0 Exam General: Chronically ill-appearing, No acute distress, well-developed, well- nourished, appropriately interactive HEENT: Normocephalic, atraumatic. External ears without defect. Anicteric sclerae, moist conjunctivae, and no lid lag. Dry oral mucosa. Neck: Supple Cardiovascular: Distant heart sounds. Regular rate and rhythm with no murmurs, rubs, or gallops appreciated Pulmonary: Wheezing bilaterally. Decreased sound at bases. Normal respiratory effort with no use of accessory muscles. Abdomen: Bowel tones present. Soft, nontender, nondistended. Extremities: Bilateral lower extremity edema with pitting up to sacrum. Skin: Lower extremity with chronic venostasis changes, erythema. Clean dry dressing to right lower extremity and toes, and clean dry dressing over left forefoot. Neurological: Cranial nerves grossly intact. Psychiatric: Normal mood and affect. Alert and oriented to person, place, and time. Lab and Diagnostics Result Diagram: 11/05/1644711/05/16447 X-Rays, CTs and MRIs US RENAL SONOGRAM IMPRESSION: Simple right renal cysts. Left kidney not sonographically visualized and reportedly absent. Incidentally noted right pleural fluid Dictated by: Shaan Nogueira M.D. on 11/01/2016 at 17:33 US ABDOMEN IMPRESSION: Right renal cyst. Suboptimal evaluation due to excessive bowel gas as above Elsewhere, no acute abnormality. Normal appearance of the gallbladder. Dictated and approved by: Shaan Nogueira M.D. on 11/05/2016 at 14:41 Cardiac Echo Impressions Echocardiogram 10/29/2016 The left ventricle is severely dilated. The EF is estimated to be 10-15%. Compared to prior exam, left ventricular function is slightly decreased. The right ventricle is normal size. Right ventricular systolic is moderately reduced. There is a pacemaker lead in the right ventricle. There is moderate mitral regurgitation. Compared to prior echo study, there has been an increase in the severity of mitral regurgitation. There is severe tricuspid regurgitation. Compared to prior echo exam, there has been an increase in TR severity. The RVSP is estimated at 43mmHg assuming a right atrial pressure of 15mm Hg. Compared to prior echo exam, there has been an increase in the severity of pulmonary hypertension. Dr. Santos Bernard 10/29/2016 05:31 Additional Diagnostics PROCEDURE: PVE Unilateral Right IMPRESSION: No deep venous thrombosis in the right lower extremity. Hung Aden MD on 10/29/2016 PROCEDURE: ARTERIAL LOW.EXTREM.BILATERAL IMPRESSION: Scattered bilateral lower extremity atheromatous plaque as above, without definite evidence of focal stenosis. Left dorsalis pedis artery is not evaluated secondary to soft tissue changes. Shaan Nogueira MD on 10/28/2016 Assessment & Plan Patient is a 70-year-old male with CAD s/p PCI (GERARD to distal LAD), CHF s/p AICD , dyslipidemia, COPD, solitary congenital kidney and pulmonary hypertension presenting as a transfer from [facility] and admitted for worsening systolic heart failure and lower extremity edema. Hospital day #5. 1. HFrEF with dilated cardiomyopathy. Present on admission. Active -Decrease ejection fraction on recent echo (EF 15-20% to 10-15%) -Likely secondary to ischemia -Right heart catheterization with findings of elevated pressures -Stage D heart failure with poor prognosis per Cardiology. tried with inotropic driven diuretic therapy with the hope that patient will be able to tolerate standard heart failure medications once he is euvolemic .weaned off dobutamine today.went in to sinus tach.Dr Linda recommended coreg but patient refused stating it makes him sick,swicthed to metoprolol 12.5 tid -Continue spironolactone 25mg daily -Continue lisinopril 5mg qhs -Continue digoxin 0.125mg daily -Stop Dobutamine infusion (Per Dr. Linda, cardiology) -Stop Lasix -Start Torsemide tomorrow -Restart Carvedilol 3.125mg BID daily -Follow up with Dr. Bernard after discharge (consider referral to the [facility] for advanced heart failure therapies for further recommendations) 2. Hyperbilirubinemia and transaminitis, present on admission. Active -Etiology unknown. Accompanied with leukocytosis -Differential diagnosis: choledocholithiasis, acalculous cholecystitis drug induced, vascular causes, portal vein thrombosis, viral hepatitis, pancreatitis -Abdominal ultrasound revealed no acute abnormality -PT/INR 3. Elevated troponin, acute. Present on admission. Active -Most likely secondary to heart failure #1 -Heparin drip DC'd per cardiology -Cardiology following. Recommendations per cardiology appreciated 4. History of Coronary artery disease / STEMI s/p GERARD to LAD. Present on admission. Stable - Continue Aspirin 81 mg daily - Continue Clopidogrel 75 mg daily - Continue Atorvastatin 10 mg daily at bedtime - Per cardiology no need for heparin 5. Cardiac arrhythmias. Present on admission. Improving - Patient has history of both ventricular fibrillation and ventricular tachycardia requiring AICD shock July 2016. - Patient continues to have nonsustained ventricular tachycardia telemetry - Consider addition of Amiodarone if ventricular tachycardia increases in frequency 6. Bilateral lower extremity edema. Present on admission. Active -Likely secondary to worsening heart failure -Ruptured blisters and ulcers present -Wound Care following 7. Acute kidney injury. Present on admission. Improved -Note that patient has solitary congenital kidney -Improved. Creatinine normalized -Nephrology following. Recommendations per nephrology appreciated -Allopurinol 100 mg by mouth daily 8. Left inguinal hernia, chronic. Present on admission. Active -Patient reports increased pain with onset of swelling -Consider ultrasound if pain persists 9. COPD, chronic. Present on admission. Currently stable -DuoNeb QIDWA -Albuterol PRN 10. Type 2 diabetes mellitus, chronic. Present on admission. Stable -Bedside blood glucose checks -Hold home glyburide -Low dose correctional lispro -HbA1c 8.5 11. Dyslipidemia, chronic. Present on admission. Stable -Statin as in #3 -Lipid panel shows cholesterol is well controlled 12. Anxiety, chronic. Present on admission. Presumed stable -Lorazepam 1mg TID and before bed PRN Disposition: Pending hospital course; anticipate discharge home after diuresis and euvolemic in 2-3 days VTE Prophylaxis: Other (Heparin gtt) VTE Mechanical Devices: Intermittant Pneumatic CD Resuscitation Status: CPR: Attempt Resuscitation Attending Statement The patient was seen and examined together with Dr. Foss on 11/05/2016 and I agree with the history, exam and plan as outlined in the note above. Yana Foss DO Nov 05, 2016 13:34 Ernesto Cotto MD Nov 05, 2016 20:32
--- NOTE | 2016-11-05 14:08 | NUR ---
NUTRITION FOLLOW-UP: ASSESS: 71 YO male admitted to CCU with worsening lower extremity edema. Edema has been improving since admit. He is tolerating PO well on a heart healthy/consistent carb diet. Wt is trending down, related to fluids. Pt continues to complain of constipation. PMHx: CAD, CHF, dyslipidemia, COPD, solitary kidney, pulmonary HTN, anxiety, AICD, cardiomyopathy, DM2, left lung nodule, HTN, STAN. DIET: Heart healthy consistent carb. PO 75-100% LABS: Reviewed. Na 133, Cl 90, CO2 31, [employer] .70, Glu 107, Ca 8.4, t. bili 1.8, AST 200, ALT 276, Alb 3.2 MEDICATIONS: Reviewed. Lasix, Zofran, senna, Miralax GI: 0 BM, receiving Senna and Miralax SKIN: No PU per WC, tiarra 19, pitting edema ANTHROPOMETRICS: Current Wt: 86.4 kg BMI: 27.3 kg/m2. Admit weight: 99.8 kg, 13.4kg wt loss since admit due to fluids, IBW: 75.45 ESTIMATED NEEDS: Calories: 2160-2595kcal/day (25-30kcal/kg) Protein: 85-105g/day (1.0-1.2g/kg) NUTRITION DIAGNOSIS: 1) Increased nutrient needs related to increased demand for nutrients, as evidenced by multiple lower extremity wounds.--IMPROVING INTERVENTION: 1) Continue Glucerna on lunch and dinner trays. 2) Will continue to monitor fluid status and wt. MONITOR/EVALUATE: PO intake, wt, fluids, BM, labs, GI/nutrition status. Follow up per moderate nutrition risk guidelines.
--- NOTE | 2016-11-05 14:45 | DRSVH ---
PROCEDURE: US ABDOMEN INDICATIONS: elevated liver enzymes TECHNIQUE: Real-time scanning was performed of the abdominal and retroperitoneal organs, with image documentatio n. COMPARISON: None. FINDINGS: Liver length: 15.41 cm Gallbladder Wall Thickness: 1.60 mm CHD: 3.20 mm CBD: 3.60 mm Spleen length: 9.54 cm Right kidney length: 13.53 cm Left kidney length: Absent Aorta(Proximal): 2.74 cm Aorta(Mid): 1.70 cm Aorta(Distal): 1.66 cm RCIA: Obscured by bowel gas LCIA: Obscured by bowel gas Liver: Liver is normal in size and homogeneous in echotexture. Gallbladder: Bladder unremarkable. No sonographic Pat sign Biliary ducts: Intrahepatic bile ducts are non-dilated. Extrahepatic bile duct caliber is normal. Normal is 6-7 mm or less in diameter, or 10 mm or less post-cholecystectomy. Pancreas: Pancreas obscured by bowel gas Spleen: Spleen is normal in size and homogeneous in echotexture. Kidneys: Kidneys are normal in size and echotexture. No hydronephrosis or nephrolithiasis. No bryant d masses. There is a simple appearing, upper pole right renal cyst measuring 1.6 x 1.3 x 1.4 cm, emre ssly unchanged Aorta: Visualized aorta is normal in caliber at less than 3 cm. Iliacs: Proximal common iliac arteries are normal in caliber at less than 2.5 cm. IVC: Intrahepatic inferior vena cava is patent. Miscellaneous: No free abdominal fluid. IMPRESSION: Right renal cyst. Suboptimal evaluation due to excessive bowel gas as above Elsewhere, no acute abnormality. Normal appearance of the gallbladder. Dictated by: Shaan Nogueira M.D. on 11/05/2016 at 14:41 Approved by: Shaan Nogueira M.D. on 11/05/2016 at 14:43
[2016-11-05] MEDS ORDERED: MeTOProlol 1 mg/mL 5 mL Inj IVPUSH ONE (14:50)
[2016-11-05] MEDS ORDERED: MeTOProlol XL 25 mg ER24 Tablet PO SCH (14:50)
[2016-11-05] MEDS ORDERED: Furosemide 10 mg/mL 2 mL Inj IVPUSH SCH (16:30)
--- NOTE | 2016-11-05 17:02 | NUR ---
Ambulation/TELE/HR The pt was able to walk the halls with PT today - tolerated well. Dobutamine drip has been DC'ed, and the pt's HR has been between 115-130 sustained. MD and Cardiology are aware; continuing to monitor and reassess medications.
--- NOTE | 2016-11-05 17:54 | NUR ---
Wound Care Patient seen for dressing change today, blister on dorsum of left foot had burst so loose skin was selectively removed today. Left dorsal foot- 3 cm diameter wound, dressed with adaptic, foam and kerlix wrap. Left 4th toe - 1 cm diameter dry ulcer with scab.No dressing needed here. Right 4th toe dorsal skin blistered, cleaned with saline covered with adaptic, foam,gauze and tape.. Right anterior leg 1.5 cm diameter wound, weeping serous fluid copiously. cleaned with saline redressed with adaptic, foam and kerlix. Right posterior calf 6 cm diameter broken blister also weeping copiously.cleaned with saline redressed with adaptic, foam and kerlix. Wounds are stable but unchanged dimensionally, continue q 48 hr dressing changes by RN, wound to follow up as needed.
[2016-11-05] MEDS: Tiotropium 18mcg/Cap 5 Capsule Inhaler Kit INHALATION SCH (19:17)
[2016-11-05] MEDS: MeTOProlol XL 25 mg ER24 Tablet PO SCH (20:58)
[2016-11-06] VITALS (10 sets, daily range): BP systolic 86–100; BP diastolic 52–65; PULSE 102–118; RESP 18–23; O2SAT 93–99
[2016-11-06 05:25] LABS: BASOPHILS % (AUTO) 0.5 % (0-3); MONOCYTES % (AUTO) 12.8 % (4-12); Mean Corpuscular Hemoglobin 29.1 pg (27.0-35.0); Mean Corpuscular Volume 84.4 fL (81-100); NEUTROPHILS % (AUTO) 65.7 % (40-74); Platelet Count 187 bil/L (150-400)
[2016-11-06] MEDS ORDERED: Insulin Human REGular 300 Unit/3 mL Inj SUBQ SCH (06:15)
[2016-11-06] MEDS ORDERED: Calcium GLUCOnate 10% (Gm) 1 Gm/10 mL Inj IVPUSH ONE (06:15)
[2016-11-06] MEDS ORDERED: Insulin Human REGular 300 Unit/3 mL Inj IV ONE ×2 (06:36→08:00)
[2016-11-06] MEDS: Insulin LISPRO 300 Unit/3 mL Inj SUBQ SCH ×4 (08:12→20:02)
[2016-11-06] MEDS: Tiotropium 18mcg/Cap 5 Capsule Inhaler Kit INHALATION SCH (08:13)
[2016-11-06] MEDS: MeTOProlol XL 25 mg ER24 Tablet PO SCH ×3 (08:14→17:11)
[2016-11-06] MEDS: Albuterol-Ipratropium 3 mL Inhalation Solution NEB SCH ×3 (08:31→21:00)
--- NOTE | 2016-11-06 12:13 | NUR ---
Social Work Note - Continued Discharge Planning: D/A: The Pt is a 71 y/o male that is now on day 7 of admission for CHF. PT eval completed, recommending [facility] PT. SW met with the Pt and family to discuss recommendations and the possibility of HH. Pt reports that he will be homebound for a period of time after discharge. HH list given, Pt would like to review list with family. SW to follow up regarding choice and interest. PANKAJ also signed. Cardiology and Wound Care following, see notes. P: The Pt is not ready for discharge, likely to discharge home via family POV when medically stable. Pt eval completed, recommending home with [facility] PT. Recommendations discussed with Pt, Pt reports being homebound for a period of time after discharge. HH list given and reviewed, SW to follow regarding choice and interest. MARTHA Hamm Medical Attendant
--- NOTE | 2016-11-06 15:29 | PCM.PNMED ---
Subjective Date of Service Nov 06, 2016 Subjective Patient is feeling much better. He worked with PT yesterday. He had a bowel movement. Wound care continues. He denies chest pain, shortness of breath, heart palpitations. Exam Vital Signs Vital Sign - Last Date Time Temp Pulse Resp B/P Pulse Ox O2 Delivery O2 Flow Rate FiO2 11/06/16 15:10 112 20 93 Room Air 11/06/16 12:11 36.5 86/55 1.50 Intake and Output 11/05/16 11/05/16 11/06/16 Cumulative From/Thru 15:00 23:00 07:00 10/30/16 18:00 - 11/06/16 06:47 Intake Total 400 ml 628 ml 113 ml 7944 ml Output Total 800 ml 650 ml 1100 ml 34940 ml Balance -400 ml -22 ml -987 ml -25456 ml Intake Oral 400 ml 480 ml 113 ml 5943 ml IV Total 148 ml 2001 ml Output Urine Total 800 ml 650 ml 1100 ml 05608 ml # Bowel Movements 0 Exam General: Chronically ill-appearing, No acute distress, well-developed, well- nourished, appropriately interactive HEENT: Normocephalic, atraumatic. External ears without defect. Anicteric sclerae, moist conjunctivae, and no lid lag. Dry oral mucosa. Neck: Supple with full range of motion, moderate JVD Cardiovascular: Distant heart sounds. Regular rate and rhythm with no murmurs, rubs, or gallops appreciated Pulmonary: Wheezing bilaterally. Decreased sound at bases. Normal respiratory effort with no use of accessory muscles. Abdomen: Bowel tones present. Soft, nontender, nondistended. Extremities: left dorsal foot- 3 cm diameter wound, left 4th toe - 1 cm diameter dry ulcer with scab, right 4th toe dorsal skin blistered,right anterior leg 1.5 cm diameter wound, weeping serous fluid copiously, right posterior calf 6 cm diameter broken blister also weeping copiously. All wounds cleaned and dressed by lawn specialist. Skin: Lower extremity with chronic venostasis changes, erythema. Clean dry dressing to right lower extremity and toes, and clean dry dressing over left forefoot. Neurological: Cranial nerves grossly intact. Psychiatric: Normal mood and affect. Alert and oriented to person, place, and time. IVs and Medications Medications Reviewed: Medications were reviewed in detail Lab and Diagnostics Result Diagram: 11/06/16 0500 11/06/16 1106 X-Rays, CTs and MRIs US RENAL SONOGRAM IMPRESSION: Simple right renal cysts. Left kidney not sonographically visualized and reportedly absent. Incidentally noted right pleural fluid Dictated by: Shaan Nogueira M.D. on 11/01/2016 at 17:33 US ABDOMEN IMPRESSION: Right renal cyst. Suboptimal evaluation due to excessive bowel gas as above Elsewhere, no acute abnormality. Normal appearance of the gallbladder. Dictated and approved by: Shaan Nogueira M.D. on 11/05/2016 at 14:41 Cardiac Echo Impressions Echocardiogram 10/29/2016 The left ventricle is severely dilated. The EF is estimated to be 10-15%. Compared to prior exam, left ventricular function is slightly decreased. The right ventricle is normal size. Right ventricular systolic is moderately reduced. There is a pacemaker lead in the right ventricle. There is moderate mitral regurgitation. Compared to prior echo study, there has been an increase in the severity of mitral regurgitation. There is severe tricuspid regurgitation. Compared to prior echo exam, there has been an increase in TR severity. The RVSP is estimated at 43mmHg assuming a right atrial pressure of 15mm Hg. Compared to prior echo exam, there has been an increase in the severity of pulmonary hypertension. Dr. Santos Bernard 10/29/2016 05:31 Additional Diagnostics PROCEDURE: PVE Unilateral Right IMPRESSION: No deep venous thrombosis in the right lower extremity. Hung Aden MD on 10/29/2016 PROCEDURE: ARTERIAL LOW.EXTREM.BILATERAL IMPRESSION: Scattered bilateral lower extremity atheromatous plaque as above, without definite evidence of focal stenosis. Left dorsalis pedis artery is not evaluated secondary to soft tissue changes. Shaan Nogueira MD on 10/28/2016 Assessment & Plan Patient is a 70-year-old male with CAD s/p PCI (GERARD to distal LAD), CHF s/p AICD , dyslipidemia, COPD, solitary congenital kidney and pulmonary hypertension presenting as a transfer from [facility] and admitted for worsening systolic heart failure and lower extremity edema. Hospital day #6. 1. Hyperkalemia, not present on admission. Active -Potassium of 6.2 on hospital day 6. Most likely d/t Lisinopril, Spironolactone .will resume lisinopril tomorrow and probably avoid the combination up on discharge -We will stop the above medications -Insulin, dextrose, kayexalate administered -Potassium normalized, currently 5.1 -Continue to monitor 2. HFrEF with dilated cardiomyopathy. Present on admission. Active -Decrease ejection fraction on recent echo (EF 15-20% to 10-15%) -Likely secondary to ischemia -Right heart catheterization with findings of elevated pressures -Stage D heart failure with poor prognosis per Cardiology. tried with inotropic driven diuretic therapy with the hope that patient will be able to tolerate standard heart failure medications once he is euvolemic .weaned off dobutamine today.went in to sinus tach.Dr Linda recommended coreg but patient refused stating it makes him sick,swicthed to metoprolol 12.5 tid -Stop spironolactone 25mg daily -Stop Lisinopril 5mg qhs -Stop Dobutamine infusion (Per Dr. Linda, cardiology) -Stop Lasix -Continue Torsemide 20 mg BID daily -Continue Metoprolol 12.5 mg TID daily -Continue Digoxin 0.125 mg daily -Continue to monitor vital signs for the next 24-48 hours -Follow up with Dr. Bernard after discharge (consider referral to the [facility] for advanced heart failure therapies for further recommendations) 3. Cardiac arrhythmias. Present on admission. Improving - Patient has history of both ventricular fibrillation and ventricular tachycardia requiring AICD shock July 2016. - Patient continues to have nonsustained ventricular tachycardia telemetry - Consider addition of Amiodarone if ventricular tachycardia increases in frequency - Heart rate in 110-120's. [address] Foreman whether patient should be started on Ticosyn for arrhythmia 4. Hyperbilirubinemia and transaminitis, present on admission. Improving -Etiology probably liver congestion . Accompanied with leukocytosis -Differential diagnosis: hepatic congestion from increased central venous pressure, choledocholithiasis, acalculous cholecystitis drug induced, vascular causes, portal vein thrombosis, viral hepatitis, pancreatitis -Abdominal ultrasound revealed no acute abnormality -PT/INR -Continue to monitor 5. Elevated troponin, acute. Present on admission. Active -Most likely secondary to heart failure #1 -Heparin drip DC'd per cardiology -Cardiology following. Recommendations per cardiology appreciated 6. History of Coronary artery disease / STEMI s/p GERARD to LAD. Present on admission. Stable - Continue Aspirin 81 mg daily - Continue Clopidogrel 75 mg daily - Continue Atorvastatin 10 mg daily at bedtime - Per cardiology no need for heparin 7. Bilateral lower extremity edema. Present on admission. Active -Likely secondary to worsening heart failure -Ruptured blisters and ulcers present -Wound Care following 8. Acute kidney injury. Present on admission. Improved -Note that patient has solitary congenital kidney -Improved. Creatinine normalized -Nephrology following. Recommendations per nephrology appreciated -Allopurinol 100 mg by mouth daily 9. Left inguinal hernia, chronic. Present on admission. Active -Patient reports increased pain with onset of swelling -Consider ultrasound if pain persists 10. COPD, chronic. Present on admission. Currently stable -DuoNeb QIDWA -Albuterol PRN 11. Type 2 diabetes mellitus, chronic. Present on admission. Stable -Bedside blood glucose checks -Hold home glyburide -Low dose correctional lispro -HbA1c 8.5 12. Dyslipidemia, chronic. Present on admission. Stable -Statin as in #3 -Lipid panel shows cholesterol is well controlled 13. Anxiety, chronic. Present on admission. Presumed stable -Lorazepam 1mg TID and before bed PRN Disposition: Pending hospital course; anticipate discharge home after diuresis and euvolemic in 2-3 days VTE Prophylaxis: Other (Heparin gtt) VTE Mechanical Devices: Intermittant Pneumatic CD Resuscitation Status: CPR: Attempt Resuscitation Attending Statement The patient was seen and examined independently on 11/06/2016 and case discussed with . I agree with the history, exam and plan as outlined in the note above. Yana Foss DO Nov 06, 2016 15:29 Ernesto Cotto MD Nov 07, 2016 06:28
[2016-11-06] MEDS: LORazepam 1 mg Tablet PO PRN ×2 (17:13→23:02)
--- NOTE | 2016-11-06 19:44 | PROG NOTE ---
[address] [address] PROGRESS NOTE PATIENT: HARRIET KOHLI : 1945 MR#: [id number] ADMIT: 10/30/2016 JOB ID: [id number] DATE: 11/06/2016 The patient has done really quite well over the last couple of days. I was surprised to see him ambulating in the hallway yesterday without significant problems. His diuresis has leveled off. He remains tachycardic with heart rates in the 110 range with blood pressures in the 90-100 range as expected. His issues with constipation resolved yesterday and, generally, he states that he is feeling fairly well today. His weight is 84.8 kg which is down 15 kg from admission. Wound Care is managing his venous ulcerations in both lower extremities which seem to be gradually improving. PHYSICAL EXAMINATION: He looks like he feels well. He is wearing nasal oxygen with good O2 saturation and does not appear tachypneic. He has moderate jugular venous distention still apparent. Lung royal are unremarkable. Cardiac exam is notable for a ventricular gallop. Distal extremities show resolving edema and persistent moderate erythema with bandaged wounds. LABORATORY DATA: Notable for white count of 12.5 thousand, hemoglobin of 15.5. Chemistries this morning showed a potassium of 6.2, his sodium is still low at 130, creatinine 0.69, transaminase values continue to gradually improve. Total bilirubin is increased to 2.4, however. ASSESSMENT: This gentleman so far is tolerating metoprolol succinate at a dose of 12.5 mg three times daily. He has been changed to torsemide 20 mg b.i.d. and will want to watch him for another 24-48 hours to make sure that he is adjusting to his oral medication and stable. I suspect his transaminase elevations represent simple hepatic congestion from his high central venous pressures as before and should continue to gradually improve. I will ask my office to schedule this patient for followup, perhaps next week if possible, with Dr. Bernard in [place] for close outpatient followup. I anticipate that he will be ready for discharge probably in the next 24-48 hours but that will depend upon his clinical course.
[2016-11-06] MEDS: HYDROcodone-APAP 5-325 mg Tablet PO PRN (23:03)
[2016-11-07] VITALS (8 sets, daily range): BP systolic 88–117; BP diastolic 57–73; PULSE 106–122; RESP 18–20; O2SAT 93–96
[2016-11-07 05:18] LABS: Mean Corpuscular Volume 84.4 fL (81-100)
[2016-11-07] MEDS: Insulin LISPRO 300 Unit/3 mL Inj SUBQ SCH ×3 (08:22→17:30)
[2016-11-07] MEDS: MeTOProlol XL 25 mg ER24 Tablet PO SCH (08:23)
[2016-11-07] MEDS: Tiotropium 18mcg/Cap 5 Capsule Inhaler Kit INHALATION SCH (08:23)
[2016-11-07] MEDS: Albuterol-Ipratropium 3 mL Inhalation Solution NEB SCH ×3 (08:47→16:44)
[2016-11-07] MEDS: LORazepam 1 mg Tablet PO PRN (10:32)
[2016-11-07] MEDS ORDERED: DOPamine 800 mg/250 mL D5W 800,000 MCG in IV Premix 1 EACH IV SCH (11:55)
--- NOTE | 2016-11-07 14:06 | NUR ---
Dopamine Drip Drip initiated at 1345. Pt hardwired with vitals running Q5 for three sets, then Q15. Current vitals are 112/59; 123bpm; 92% O2 on RA. The pt is A&Ox3. Dopamine at 3.9 mL/hr (2.5mcg/kg/hr)
[2016-11-07] MEDS ORDERED: DOBUTamine 500 mg/250 D5W 500,000 MCG in IV Premix 1 EACH IV PRN (14:25)
--- NOTE | 2016-11-07 15:15 | NUR ---
DOBUTamine Drip Pt pulled off dopamine, and started on dobutamine at 3.9mL/hour per Dr. Linda.
--- NOTE | 2016-11-07 16:16 | PCM.DIMED ---
aYna Foss DO 11/07/16 1616: Discharge Instructions Date of Service Nov 07, 2016 Dates of Hospitalization Oct 30, 2016 at 17:39 Discharge Diagnosis Discharge Diagnosis 1. HFrEF with dilated cardiomyopathy. Present on admission. Active 2. Cardiac arrhythmias. Present on admission. Improving 3. Hyperbilirubinemia and transaminitis, present on admission. Improving 4. Elevated troponin, acute. Present on admission. Active 5. History of Coronary artery disease / STEMI s/p GERARD to LAD. Present on admission. Stable 6. Bilateral lower extremity edema. Present on admission. Active 7. Acute kidney injury. Present on admission. Improved 8. Hyperkalemia, not present on admission. Resolved 9. Left inguinal hernia, chronic. Present on admission. Active 10. COPD, chronic. Present on admission. Currently stable 11. Type 2 diabetes mellitus, chronic. Present on admission. Stable 12. Dyslipidemia, chronic. Present on admission. Stable 13. Anxiety, chronic. Present on admission. Presumed stable Diet Heart Healthy Activity Limited until seen by PCP Call your provider Fever or Chills, Shortness of breath, Bleeding, Chest pain, Vomitting, Excessive diarrhea, Weakness (unilateral) Patient Instructions Follow-up plan Please follow up with Dr. Huerta after discharge from . Please follow up with Dr. Bernard after discharge from . Ernesto Cotto MD 11/07/16 1850: Discharge Instructions Patient Instructions patient transferred to [facility] for evaluation of bventricular assist device per Dr Linda ,accepting physician Dr Ximena Soler Attending's Statement The patient was seen and examined together with Dr. Foss on 11/07/16 and I agree with the discharge instructions as outlined in the note above. Yana Foss DO Nov 07, 2016 16:16 Ernesto Cotto MD Nov 07, 2016 18:50
[2016-11-07] MEDS ORDERED: TORS20TA3 PO (16:22)
[2016-11-07] MEDS ORDERED: DIGO125T16 PO (16:22)
--- NOTE | 2016-11-07 16:46 | PCM.DC.MED ---
Discharge Summary Date of Service Nov 07, 2016 Dates of Hospitalization Date of Hospital Admission Oct 30, 2016 at 17:39 Date of Discharge: Nov 07, 2016 Providers: Admitting Physician: Frank Power MD Primary Care Physician: Westley Huerta MD Attending Physician: Frank Power MD Diagnosis at Time of Discharge Diagnosis at Time of Discharge 1. HFrEF with dilated cardiomyopathy. Present on admission. Active 2. Cardiac arrhythmias. Present on admission. Improving 3. Hyperbilirubinemia and transaminitis, present on admission. Improving 4. Elevated troponin, acute. Present on admission. Active 5. History of Coronary artery disease / STEMI s/p GERARD to LAD. Present on admission. Stable 6. Bilateral lower extremity edema. Present on admission. Active 7. Acute kidney injury. Present on admission. Improved 8. Hyperkalemia, not present on admission. Resolved 9. Left inguinal hernia, chronic. Present on admission. Active 10. COPD, chronic. Present on admission. Currently stable 11. Type 2 diabetes mellitus, chronic. Present on admission. Stable 12. Dyslipidemia, chronic. Present on admission. Stable 13. Anxiety, chronic. Present on admission. Presumed stable Consultations Cardiology, Dr. Foreman Procedures XRay, CTs & MRIs US RENAL SONOGRAM IMPRESSION: Simple right renal cysts. Left kidney not sonographically visualized and reportedly absent. Incidentally noted right pleural fluid Dictated by: Shaan Nogueira M.D. on 11/01/2016 at 17:33 US ABDOMEN IMPRESSION: Right renal cyst. Suboptimal evaluation due to excessive bowel gas as above Elsewhere, no acute abnormality. Normal appearance of the gallbladder. Dictated and approved by: Shaan Nogueira M.D. on 11/05/2016 at 14:41 Cardiac Echo Impression Echocardiogram 10/29/2016 The left ventricle is severely dilated. The EF is estimated to be 10-15%. Compared to prior exam, left ventricular function is slightly decreased. The right ventricle is normal size. Right ventricular systolic is moderately reduced. There is a pacemaker lead in the right ventricle. There is moderate mitral regurgitation. Compared to prior echo study, there has been an increase in the severity of mitral regurgitation. There is severe tricuspid regurgitation. Compared to prior echo exam, there has been an increase in TR severity. The RVSP is estimated at 43mmHg assuming a right atrial pressure of 15mm Hg. Compared to prior echo exam, there has been an increase in the severity of pulmonary hypertension. Dr. Santos Bernard 10/29/2016 05:31 Other Diagnostics PROCEDURE: PVE Unilateral Right IMPRESSION: No deep venous thrombosis in the right lower extremity. Hung Aden MD on 10/29/2016 PROCEDURE: ARTERIAL LOW.EXTREM.BILATERAL IMPRESSION: Scattered bilateral lower extremity atheromatous plaque as above, without definite evidence of focal stenosis. Left dorsalis pedis artery is not evaluated secondary to soft tissue changes. Shaan Nogueira MD on 10/28/2016 Brief History Per Admitting Physician: Frank Power MD: Patient is a 70-year-old gentleman with CAD s/p PCI (GERARD to distal LAD), CHF s/ p AICD, dyslipidemia, COPD, solitary congenital kidney and pulmonary hypertension presenting as a transfer from [facility]. Patient accompanied by his at bedside. Patient presented to [facility] on 10/28/2016 with worsening lower extremity edema. He reports onset of edema since July but worsened over the past week with the development of blisters. At [facility] , the patient underwent an echocardiogram and was found to have an estimated ejection fraction of 10-15%,which is worse than his prior echocardiogram (11/2015 ) with EF 15-20%. There was also elevations of troponin-I (0.069, 3.760 and 1.680) and patient was subsequently started on a heparin drip. Cardiology was reportedly consulted and it was recommended the patient be transferred to [facility] for further evaluation with anticipated cardiac catheterization. At time of visit, the patient endorses shortness of breath, which is chronic, and some neck pain from a prior injury. He also reports having a left inguinal hernia that he feels has worsened with the recent swelling. Patient feels his urine output has decreased despite being on Lasix. He reports he last urinated this afternoon. Patient otherwise denies chest pain, lightheadedness, dizziness, vision changes, abdominal pain, nausea, emesis. Notable labs from [facility] 10/30/2016: WBC 14.6, Hgb 16.5, Hct 50.2, Plt 163, Na 128, K 5.2, Cl 94, CO2 23, BUN 51, Creatinine 1.20. Other notable labs: BNP 1120. Hospital Course Patient is a 70-year-old male with CAD s/p PCI (GERARD to distal LAD), CHF s/p AICD , dyslipidemia, COPD, solitary congenital kidney and pulmonary hypertension presenting as a transfer from [facility] and admitted for worsening systolic heart failure and lower extremity edema. Patient has been transferred to on the hospital day 7 for higher level of care and possible consideration of LVAD placement. 1. HFrEF with dilated cardiomyopathy. Present on admission. Active -Decrease ejection fraction on recent echo (EF 15-20% to 10-15%) -Likely secondary to ischemia -Right heart catheterization with findings of elevated pressures -Stage D heart failure with poor prognosis per Cardiology. Tried with inotropic driven diuretic therapy with the hope that patient will be able to tolerate standard heart failure medications once he is euvolemic. Weaned off dobutamine. Went in to sinus tach. Dr Linda recommended Coreg but patient refused stating it makes him sick, switched to metoprolol 12.5 mg tid after which patient developed ori black breathing. Discontinues metoprolol. -Discontinued spironolactone 25mg daily, Lisinopril 5mg qhs, Lasix Dobutamine infusion (Per Dr. Linda, cardiology) -Continued Torsemide 20 mg BID daily, Digoxin 0.125 mg daily -Started on Dopamine drip 2.5mcg/kg/min -Transferred to for higher level of care and possible LVAD placement 2. Cardiac arrhythmias. Present on admission. Improving - Patient has history of both ventricular fibrillation and ventricular tachycardia requiring AICD shock July 2016 - Patient continues to have nonsustained ventricular tachycardia telemetry - Consider addition of Amiodarone if ventricular tachycardia increases in frequency - Heart rate in 110-120's. Patient was started on Metoprolol 12.5 mg tid bur patient developed ori black breathing. Discontinues metoprolol. 3. Hyperbilirubinemia and transaminitis, present on admission. Improving -Etiology probably liver congestion . Accompanied with leukocytosis -Differential diagnosis: hepatic congestion from increased central venous pressure, choledocholithiasis, acalculous cholecystitis drug induced, vascular causes, portal vein thrombosis, viral hepatitis, pancreatitis -Abdominal ultrasound revealed no acute abnormality. Continued to monitor 4. Elevated troponin, acute. Present on admission. Active -Most likely secondary to heart failure #1 -Heparin drip DC'd per cardiology 5. History of Coronary artery disease / STEMI s/p GERARD to LAD. Present on admission. Stable - Continued Aspirin 81 mg daily - Continued Clopidogrel 75 mg daily - Continued Atorvastatin 10 mg daily at bedtime - Per cardiology no need for heparin 6. Bilateral lower extremity edema. Present on admission. Active -Likely secondary to worsening heart failure -Ruptured blisters and ulcers present -Followed by Wound Care 7. Acute kidney injury. Present on admission. Improved -Note that patient has solitary congenital kidney -Improved. Creatinine normalized -Followed by nephrology -Continued Allopurinol 100 mg by mouth daily 8. Hyperkalemia, not present on admission. Resolved -Potassium of 6.2 on hospital day 6. Most likely d/t Lisinopril, Spironolactone .will resume lisinopril tomorrow and probably avoid the combination up on discharge -Discontinued above medications -Insulin, dextrose, kayexalate administered -Potassium normalized, 4.2 on discharge 9. Left inguinal hernia, chronic. Present on admission. 10. COPD, chronic. Present on admission. Currently stable -DuoNeb QIDWA -Albuterol PRN 11. Type 2 diabetes mellitus, chronic. Present on admission. Stable -Bedside blood glucose checks -Low dose correctional lispro -HbA1c 8.5 12. Dyslipidemia, chronic. Present on admission. Stable -Statin as in #3 -Lipid panel showed cholesterol is well controlled 13. Anxiety, chronic. Present on admission. Presumed stable -Lorazepam 1mg TID and before bed PRN Disposition: Patient has been transferred to on the hospital day 7 for higher level of care and possible consideration of LVAD placement. accepting physician Dr Ximena Soler Exam Vital Signs (Last) Date Time Temp Pulse Resp B/P Pulse Ox O2 Delivery O2 Flow Rate FiO2 11/07/16 13:11 36.8 107 95/62 94 Room Air 11/07/16 12:20 20 11/06/16 17:07 1.50 Exam General: Chronically ill-appearing, No acute distress, well-developed, well- nourished, appropriately interactive HEENT: Normocephalic, atraumatic. External ears without defect. Anicteric sclerae, moist conjunctivae, and no lid lag. Dry oral mucosa. Neck: Supple with full range of motion, moderate JVD Cardiovascular: Tachycardic with ventricular gallop Pulmonary: Wheezing bilaterally. Decreased sound at bases. Normal respiratory effort with no use of accessory muscles. Abdomen: Bowel tones present. Soft, nontender, nondistended. Extremities: Left dorsal foot- 3 cm diameter wound, left 4th toe - 1 cm diameter dry ulcer with scab, right 4th toe dorsal skin blistered,right anterior leg 1.5 cm diameter wound, weeping serous fluid copiously, Right posterior calf 6 cm diameter broken blister also weeping copiously. All wounds cleaned and dressed by computer help desk specialist. Skin: Lower extremity with chronic venostasis changes, erythema. Clean dry dressing to right lower extremity and toes, and clean dry dressing over left forefoot. Neurological: Cranial nerves grossly intact. Psychiatric: Normal mood and affect. Alert and oriented to person, place, and time. Test 10/31/16 02:50 10/31/16 08:30 10/31/16 09:25 11/01/16 07:46 Hemoglobin A1c 8.5% (4.8-5.6) Triglycerides Level 61mg/dL (0-149) Cholesterol Level 148mg/dL (100-199) LDL Cholesterol, Calculated 86.800mg/dL (0-99) VLDL Cholesterol 12.200mg/dL HDL Cholesterol 49mg/dL (>39) Cholesterol/HDL Ratio 3.02 (0.0-4.4) Activated Partial Thromboplast Time 71.3sec (22.8-33.0) Total Creatine Kinase 142U/L (21-232) Creatine Kinase MB 9.8ng/mL (0.0-10.4) Creatine Kinase MB % 6.9% (0.0-5.0) Troponin T 0.234ug/L (0.0-0.011) Hold Urine Received (Received) Test 11/02/16 04:30 11/03/16 05:34 11/04/16 05:51 11/05/16 04:48 Uric Acid 10.3mg/dL (2.6-7.2) Globulin (PEP) 2.3g/dL (2.2-3.9) Albumin/Globulin Ratio 1.3 (0.7-1.7) Teszr-5-Icjqzxlsc 0.1g/dL (0.0-0.4) Qelfe-9-Uxhshxzja 0.6g/dL (0.4-1.0) Beta Globulins 0.9g/dL (0.7-1.3) Gamma Globulins 0.6g/dL (0.4-1.8) Serum Monoclonal Protein Not observedg/dL Protein Electrophoresis Comment Comment (.) Protein Electrophoresis Interpret Comment (.) Phospholipids Level 152mg/dL (150-250) Magnesium Level 2.2mg/dL (1.6-2.6) Procalcitonin 0.08ng/mL (0.00-0.08) Test 11/06/16 05:00 11/07/16 05:00 Neutrophils (%) (Auto) 65.7% (40-74) Lymphocytes (%) (Auto) 17.7% (14-46) Monocytes (%) (Auto) 12.8% (4-12) Eosinophils (%) (Auto) 3.0% (0-5) Basophils (%) (Auto) 0.5% (0-3) White Blood Count 10.8th/mm3 (3.8-10.1) Red Blood Count 5.00mil/mm3 (4.40-5.80) Hemoglobin 14.5g/dL (13.8-17.2) Hematocrit 42.2% (41.0-50.0) Mean Corpuscular Volume 84.4fL (81-100) Mean Corpuscular Hemoglobin 29.0pg (27.0-35.0) Mean Corpuscular Hemoglobin Concent 34.4% (32.0-37.0) Red Cell Distribution Width 16.0% (12.3-15.4) Platelet Count 167bil/L (150-400) Sodium Level 135mEq/L (134-144) Potassium Level 4.2mEq/L (3.5-5.2) Chloride Level 91mEq/L (97-108) Carbon Dioxide Level 31mmol/L (18-29) Blood Urea Nitrogen 26mg/dL (8-27) Creatinine 0.75mg/dL (0.76-1.27) Estimat Glomerular Filtration Rate 109mL/min (>59) Glucose Level 164mg/dL (60-99) Calcium Level 8.5mg/dL (8.5-10.1) Total Bilirubin 1.6mg/dL (0.0-1.2) Aspartate Amino Transf (AST/SGOT) 88U/L (0-50) Alanine Aminotransferase (ALT/SGPT) 172U/L (0-44) Alkaline Phosphatase 66U/L (25-160) Total Protein 5.4g/dL (6.4-8.4) Albumin 3.2g/dL (3.4-5.0) Discharge Medications Discharge Medications Aspirin (Aspirin) 81 Mg Tablet 81 MG PO QAM (Reported) Atorvastatin (Lipitor) 10 Mg Tab 10 MG PO HS (Reported) Clopidogrel (Clopidogrel) 75 Mg Tablet 75 MG PO QAM (Reported) Digoxin (Digox) 125 Mcg Tablet 125 MCG PO DAILY Prescribed by: LEÓN JACQUES DO Fluticasone/Salmeterol (Advair 500-50 Diskus) 1 Each Disk.w.dev 1 PUFF INHALATION BID (Reported) Glyburide (Glyburide) 5 Mg Tab 5 MG PO QAM (Reported) Multivitamin (Multivitamins) 1 Each Capsule 1 EACH PO QAM (Reported) Tiotropium [place] (Spiriva) 18 Mcg Cap.w.dev 18 MCG INHALATION QAM (Reported) Torsemide (Torsemide) 20 Mg Tablet 20 MG PO BID Prescribed by: LEÓN JACQUES DO As needed Acetaminophen (Acetaminophen) 325 Mg Tablet 650 MG PO Q4H PRN PRN For Fever ( Reported) Albuterol HFA (Proair HFA) 8.5 Gm Hfa.aer.ad 2 PUFFS INHALATION Q4H PRN PRN For Shortness of Breath (Reported) Albuterol Neb Soln (Albuterol Neb Soln) 2.5 Mg/3 Ml Vial.neb 2.5 MG INHALATION Q4H PRN PRN For Shortness of Breath (Reported) Lorazepam (Lorazepam) 1 Mg Tablet 0.5-1 MG PO TID PRN PRN For Anxiety or Agitation (Reported) Triazolam (Triazolam) 0.125 Mg Tablet 0.125 MG PO HS PRN PRN Insomnia (Reported ) Followup Plan Follow-up plan Please follow up with Dr. Huerta after discharge from . Please follow up with Dr. Bernard after discharge from . Discharge Diet: Heart Healthy Discharge Activity: Limited until seen by PCP Time spent 45 minutes Attending Statement The patient was seen and examined together with Dr. Jacques on 11/07/16 and I agree with the discharge summary as outlined in the note above. copies to: Westley Huerta MD; Santi Linda MD, Oksana S DO Nov 07, 2016 16:46 Ernesto Cotto MD Nov 07, 2016 18:51
--- NOTE | 2016-11-07 17:26 | PROG NOTE ---
[address] [address] PROGRESS NOTE PATIENT: HARRIET KOHLI : 1945 MR#: [id number] ADMIT: 10/30/2016 JOB ID: [id number] DATE: 11/07/2016 HISTORY: The patient has been generally stable from a hemodynamic standpoint. He remains tachycardic with heart rates in the 110-115 range. His weight is stable and he is tolerating his medications well with blood pressures in the 90-100 range. Generally, he looks well but it is very clear today that he has a prominent Devan-Strauss respiratory pattern which he is aware of and his is aware of as well. This was not observed yesterday, but apparently has been more notable over the past 12-24 hours. During our discussion today, he fades in and out with a very classic and typical Devan-Strauss pattern. EXAMINATION: Otherwise is unchanged from before with clear lung royal, moderate jugular venous distention and a cardiac ventricular gallop and distal extremities show persistent erythema with bandaged wounds. LABORATORY WORK: Notable for a stable white count of 10,000 with a hemoglobin of 14.5 and a normal platelet count. His lab work shows normal potassium at 4.2, a creatinine of 0.75, blood sugar moderately elevated and improving bilirubin and transaminase levels. IMPRESSION: The patient's Devan-Strauss respiratory pattern I think likely temporally relates to the institution of low-dose beta rosendo therapy in our attempt to get him back on beta blockers and to improve his sinus tachycardia, if at all possible. I think instead of improving his situation, we have reduced his cardiac output with beta rosendo therapy with resulting Devan-Strauss pattern. I am going to discontinue his beta rosendo therapy and reinstitute low-dose dopamine at 2 mcg/kg/minute. I have spoken with Dr. Bernard, his primary emergency services dispatcher, and we both agree that transfer to an advanced heart failure setting is appropriate as it is likely that he will require and may be a candidate for advanced heart failure therapies such as an LVAD support. I will make arrangements to contact the [facility] today, and if they are in agreement and have bed availability, we will make arrangements for him to be transferred. I have reviewed these thoughts and recommendations with the patient and his , and they are both in agreement as well.
[2016-11-07] MEDS: HYDROcodone-APAP 5-325 mg Tablet PO PRN (17:31)
== END 2016-11-07 18:11 | disposition short-term general hospital (02) | DRG 287 ==
LOC: PCC 17:39 → CCU 10-31 17:00 → PCC 11-02 11:20
PROVIDERS: ADMIT Internal Medicine; ATTEND Internal Medicine
PROC: 4A023N6 Measurement of Cardiac Sampling and Pressure, Right Heart, Percutaneous Approach (ICD-10-PCS; principal; 2016-10-31)
PROC: 4A1239Z Monitoring of Cardiac Output, Percutaneous Approach (ICD-10-PCS; 2016-10-31)
DX: I50.23 Acute on chronic systolic (congestive) heart failure (principal); I42.0 Dilated cardiomyopathy; Q60.0 Renal agenesis, unilateral; N17.9 Acute kidney failure, unspecified; I13.0 Hypertensive heart and chronic kidney disease with heart failure and stage 1 through stage 4 chronic kidney disease, or unspecified chronic kidney disease; R06.3 Periodic breathing; I25.10 Atherosclerotic heart disease of native coronary artery without angina pectoris; Z95.5 Presence of coronary angioplasty implant and graft; Z72.0 Tobacco use; J44.9 Chronic obstructive pulmonary disease, unspecified; I27.2 Other secondary pulmonary hypertension; Z95.810 Presence of automatic (implantable) cardiac defibrillator; K40.90 Unilateral inguinal hernia, without obstruction or gangrene, not specified as recurrent; E11.9 Type 2 diabetes mellitus without complications; Z79.84 Long term (current) use of oral hypoglycemic drugs; E78.5 Hyperlipidemia, unspecified; F41.9 Anxiety disorder, unspecified; I48.91 Unspecified atrial fibrillation; I73.9 Peripheral vascular disease, unspecified; N18.9 Chronic kidney disease, unspecified; E87.5 Hyperkalemia; E80.6 Other disorders of bilirubin metabolism

== ENCOUNTER 2016-12-19 03:50 | Emergency (ER) | payer MEDICARE, OTHER ==
[~2016-12-19] VITALS: Ht 180.3 cm; Wt 71.8 kg
[~2016-12-19 03:50] MED LIST changes: +ACET325T51 PO; +ATRV10T PO; -Acetaminophen PO; +DIGO125T16 PO; -FURO40TA4 PO; -LISI-571 PO; -LISI10TA PO; -METO25TA99 PO; -MONT10TA20 PO; -PHEN15SP NS; -PRE10 PO; -SPIR25TA PO; +TORS20TA3 PO; -[UNRECOGNIZED DRUG - CODE] PO
--- NOTE | 2016-12-19 03:52 | ED.REPORT ---
HPI-GI Bleed Date of Service December 19, 2016 ED Provider: Dr. Warren Pt is a 71 y/o male anticoagulated on Warfarin w/ a complicated medical hx significant for dilated cardiomyopathy with low EF s/p recent LVAD placement, AICD placement, pulmonary HTN, DM, hyperlipidemia, CAD and STEMI s/p stenting, HTN, presenting to the ED via EMS c/o bright red/maroon diarrhea onset about 3 hours prior to arrival. He was experiencing abdominal cramping at time of onset but has no pain now. Pt denies nausea, vomiting, fever, chills, cough, SOB, CP. An LVAD was placed about 1 month ago at . He has had colonoscopies previously with a small number of polyps biopsied. Nursing Notes Stated Complaint: POSSIBLE GI BLEED Nursing Notes Reviewed: Yes Allergies: Coded Allergies: Penicillins (Verified Allergy, Unknown, thrush, 12/19/16) Sulfa (Sulfonamide Antibiotics) (Verified Allergy, Unknown, 12/19/16) metformin (Verified Allergy, Unknown, dyspnea, 12/19/16) levofloxacin (Verified Adverse Reaction, Severe, tendonitis, 12/19/16) oxycodone (Verified Adverse Reaction, Intermediate, itching, 12/19/16) Ekiddcd-Xoy-Aqt Reductase Inhibitor (Verified Adverse Reaction, Mild, myalgias, 12/19/16) *ON LOW DOSE LIPITOR CURRENTLY Scheduled Aspirin (Aspirin) 81 Mg Tablet 81 MG PO QAM Atorvastatin (Lipitor) 10 Mg Tab 10 MG PO HS Clopidogrel (Clopidogrel) 75 Mg Tablet 75 MG PO QAM Digoxin (Digox) 125 Mcg Tablet 125 MCG PO DAILY Fluticasone/Salmeterol (Advair 500-50 Diskus) 1 Each Disk.w.dev 1 PUFF INHALATION BID Glyburide (Glyburide) 5 Mg Tab 5 MG PO QAM Multivitamin (Multivitamins) 1 Each Capsule 1 EACH PO QAM Tiotropium [place] (Spiriva) 18 Mcg Cap.w.dev 18 MCG INHALATION QAM Torsemide (Torsemide) 20 Mg Tablet 20 MG PO BID Scheduled PRN Acetaminophen (Acetaminophen) 325 Mg Tablet 650 MG PO Q4H PRN PRN For Fever Albuterol HFA (Proair HFA) 8.5 Gm Hfa.aer.ad 2 PUFFS INHALATION Q4H PRN PRN For Shortness of Breath Albuterol Neb Soln (Albuterol Neb Soln) 2.5 Mg/3 Ml Vial.neb 2.5 MG INHALATION Q4H PRN PRN For Shortness of Breath Lorazepam (Lorazepam) 1 Mg Tablet 0.5-1 MG PO TID PRN PRN For Anxiety or Agitation Triazolam (Triazolam) 0.125 Mg Tablet 0.125 MG PO HS PRN PRN Insomnia General Time Seen by Provider: 04:30 Chief Complaint Chief Complaint: Stool maroon Bleeding Severity: Moderate Hx Obtained From: Patient, EMS Arrived By: Ambulance Onset Occurred: 1 - 4 hours ago Symptom Duration: Since onset Progression Since Onset: Constant Location: : Diffuse Quality: Cramping Radiation: : Does not radiate Severity: Current: No pain currently Severity: Maximum: Mild Recent Healthcare: Recent hospitalization, Recent testing, Previous surgery Risk-GI Bleed Bleeding Risk Stratification Bleeding Risk: Anticoagulants RF Statements: Risk factors reviewed Past Medical History Past Medical History 1. COPD 2. Anxiety 3. HFrEF (echo 10/2016 estimated EF 10-15%) 4. Dilated cardiomyopathy 5. Pulmonary HTN 6. Type 2 diabetes mellitus 7. Dyslipidemia 8. Single congenital kidney 9. Left lung nodule 10. Conductive hearing loss 11. Erectile dysfunction 12. Allergic rhinitis 13. Hypertension 14. Sleep apnea 15. Cardiac arrhythmias s/p Tikosyn therapy 16. Hx of CAD and STEMI s/p GERARD to LAD 17. Hx of hyperkalemia Past Surgical History LVAD insertion at 11/11 Sebaceous cyst excision AICD placement Cataract surgery Cardiac catheterization with stent placement (GERARD to LAD) 11/2015 Cardiac catheterization 10/31/16 Colonoscopy Family History Mother in her 70s of heart disease and DM Smoking History Smoker Current Status UNK Social History Drug Use: Denies drug use Ambulatory Status Independent Review of Systems Constitutional: Denies: Chills, Fever Respiratory: Denies: Non-productive cough, Shortness of breath Cardiovascular: Denies: Chest pain GI: Reports: Abdominal pain, Bloody/tarry stool, Diarrhea, Melena, Denies: Constipation, Hematemesis, Nausea, Rectal pain, Vomiting Complete sys rev & neg: except as marked. Physical Exam Initial Vital Signs Vital Signs (First) Date Time Temp Pulse Resp B/P Pulse Ox O2 Delivery O2 Flow Rate FiO2 12/19/16 03:55 25 97 Nasal Cannula 2 12/19/16 04:47 105 88/75 Initial VS: Reviewed, Vital signs abnormal Head / Eyes: Atraumatic, Normocephalic, PERRL ENT: Mucous membranes moist, Conjunctiva normal, No scleral icterus Neck: Supple, Full range of motion Extremities: Vascular intact, Neuro intact, No swelling, No tenderness Neurologic: Alert, Oriented, Nonfocal Psychiatric: Mood/affect normal, Behavior normal, Normal thought content General/Constitutional: Awake, Alert, Cooperative Distress / Hydration: Positive: Distress moderate Appearance / Presentation: Positive: Pale Chronically ill-appearing Hemodynamically stable at this time Respiratory / Chest: Breath sounds NL, Breath sounds = bilat, No respiratory distress, No rales, No rhonchi, No wheezing Resp Distress / Stridor: Positive: Resp distress mild LVAD protruding from chest - clean and dry surgical wounds Cardiovascular: Regular rhythm, Heart sounds NL, No gallop, No murmurs, No rubs Heart Rate / Rhythm: Positive: Tachycardia Abdomen: Atraumatic, Soft, Non-tender, No guarding, No rebound, No distention Rectum / Perineum: Atraumatic Gross maroon blood with blood smeared over legs Interpretation & Diagnostics Lab Results Interpretation Result Diagram: 12/19/16 0449 12/19/16 0449 Test 12/19/16 04:49 12/19/16 05:20 White Blood Count 12.7th/mm3 (3.8-10.1) Red Blood Count 3.33mil/mm3 (4.40-5.80) Hemoglobin 9.0g/dL (13.8-17.2) Hematocrit 27.0% (41.0-50.0) Mean Corpuscular Volume 81.1fL (81-100) Mean Corpuscular Hemoglobin 27.0pg (27.0-35.0) Mean Corpuscular Hemoglobin Concent 33.3% (32.0-37.0) Red Cell Distribution Width 14.8% (12.3-15.4) Platelet Count 352bil/L (150-400) Neutrophils (%) (Auto) 74.4% (40-74) Lymphocytes (%) (Auto) 12.9% (14-46) Monocytes (%) (Auto) 10.6% (4-12) Eosinophils (%) (Auto) 1.2% (0-5) Basophils (%) (Auto) 0.6% (0-3) Prothrombin Time 32.1sec (8.1-12.5) Prothromb Time International Ratio 2.93ratio Sodium Level 133mEq/L (134-144) Potassium Level 5.0mEq/L (3.5-5.2) Chloride Level 94mEq/L (97-108) Carbon Dioxide Level 24mmol/L (18-29) Blood Urea Nitrogen 34mg/dL (8-27) Creatinine 0.87mg/dL (0.76-1.27) Estimat Glomerular Filtration Rate 91mL/min (>59) Glucose Level 218mg/dL (60-99) Calcium Level 8.6mg/dL (8.5-10.1) Total Bilirubin 0.6mg/dL (0.0-1.2) Aspartate Amino Transf (AST/SGOT) 31U/L (0-50) Alanine Aminotransferase (ALT/SGPT) 25U/L (0-44) Alkaline Phosphatase 115U/L (25-160) Total Protein 6.9g/dL (6.4-8.4) Albumin 3.3g/dL (3.4-5.0) Hold Warren Top Tube Received (Received) Hold Urine Received (Received) ECG Interpretation ECG Interpretation: Sinus tachycardia rate 103 LAE LBBB Time: 05:04 Interpreted by: ED physician Re-Eval/Medical Decision Med Decision/Clinical Course 71-year-old anticoagulated male with an LVAD in place, presents with painless rectal bleeding probably diverticular in origin. Possible AV malformation alternatively. No capacity here to deal with his need for anticoagulation with the LVAD, and the ongoing bleeding. He has been relatively stable during his brief stay here. Hemoglobin is nine and hematocrit twenty-seven. Pulse is then stable at about 100 -110 but not in increasing. Blood pressure is been stable around ninety. Discussed with [facility] and they will accept in transfer. ALS transport arranged and he is transported now in critical stable condition Re-Evaluation/Progress : Time of Eval: 04:43 Re-Evaluation/Progress Note: Pt rechecked. Informed pt of need for transfer to for proper continuation of care and higher level of care. He agrees with plan for transfer. Counseled Regarding: Diagnosis, Lab results, Need for transfer Discharge & Departure Impression: Primary Impression: Lower GI bleed Additional Impressions: Anticoagulated on warfarin LVAD (left ventricular assist device) present Disposition: Transfer, Acute Care Facility Transfer Requested at: 04:50 Receiving Hospital: - Dr. Wray, Cardiology Transfer Accepted: Yes Transfer Accepted at: 05:21 Transfer Reason: Higher level of care Spoke with: Specialty physician (Lock Up Worker) Patient Status: Stable for transfer Patient Informed: Yes Discharge Condition All VS Reviewed: Yes Condition: Critical Referrals: Westley Huerta MD (PCP) Crit Care Except Billable Proc Time Spent: 30-74 minutes (thirty minutes) Services Performed: Patient management by me, Time spent at bedside, Reviewing test results, Reviewing imaging, Discussing patient care, Documentation in record Scribe Attestation Portions of this note were transcribed by Fernandez Valenzuela. I, Dr. Michelle personally performed the history, physical exam and medical decision-making; I reviewed and confirmed the accuracy of the information in the transcribed note. Signed by Demetria Barajas, 12/19/16 - 4011 copies to: Westley Huerta MD, Christopher W MD December 19, 2016 03:52 FERNANDEZ VALENZUELA December 19, 2016 04:20
[2016-12-19 03:55] VITALS: RESP 25; O2SAT 97
[2016-12-19 04:47] VITALS: BP 88/75; PULSE 105; RESP 34; O2SAT 95
[2016-12-19 05:05] LABS: BASOPHILS % (AUTO) 0.6 % (0-3); EOSINOPHILS % (AUTO) 1.2 % (0-5); MONOCYTES % (AUTO) 10.6 % (4-12); Mean Corpuscular Volume 81.1 fL (81-100); NEUTROPHILS % (AUTO) 74.4 % (40-74); Platelet Count 352 bil/L (150-400)
[2016-12-19 05:20] LABS: INR 2.93 ratio
[2016-12-19 05:38] VITALS: BP 90/62; PULSE 106; RESP 20; O2SAT 94
[2016-12-19 06:12] VITALS: BP 93/63; PULSE 105; RESP 20; O2SAT 95
== END 2016-12-19 06:13 | disposition short-term general hospital (02) ==
LOC: SED 03:50
DX: K92.2 Gastrointestinal hemorrhage, unspecified (principal); E11.9 Type 2 diabetes mellitus without complications; I10 Essential (primary) hypertension; I27.2 Other secondary pulmonary hypertension; E78.5 Hyperlipidemia, unspecified; J44.9 Chronic obstructive pulmonary disease, unspecified; Z79.01 Long term (current) use of anticoagulants; Z95.811 Presence of heart assist device; Z79.82 Long term (current) use of aspirin; Z79.899 Other long term (current) drug therapy; Z88.0 Allergy status to penicillin; Z88.1 Allergy status to other antibiotic agents; Z88.2 Allergy status to sulfonamides; Z88.5 Allergy status to narcotic agent; Z88.8 Allergy status to other drugs, medicaments and biological substances